=== PATIENT | female | born 1985 | race Caucasian/White ===

== ENCOUNTER 2017-02-13 19:18 | Inpatient (IN) | payer MEDICAID ==
[2017-02-13 20:01] LABS: AMORPHOUS SEDIMENT,URINE TRACE /HPF; APPEARANCE,URINE CLOUDY; BILIRUBIN,URINE NEGATIVE (NEGATIVE); GLUCOSE, URINE NEGATIVE (NEGATIVE); KETONES,URINE NEGATIVE (NEGATIVE); LEUKOCYTE ESTERASE,URINE NEGATIVE (NEGATIVE); NITRITE,URINE NEGATIVE (NEGATIVE); PROTEIN,URINE 30 mg/dL (NEGATIVE); UROBILINOGEN,URINE NEGATIVE mg/dL (<2.0)
[2017-02-13] MEDS ORDERED: BETAMET ACET/BETAMET NA INJ 6 MG/1 ML ONE (20:43)
[2017-02-13] MEDS ORDERED: BETAMET ACET/BETAMET NA INJ 6 MG/1 ML IM SCH (20:45)
[2017-02-13 20:48] LABS: ABSOLUTE EOSINOPHILS # (AUTO) 0.1 10^3/uL (0.0-0.6); ABSOLUTE LYMPHOCYTES (AUTO) 1.6 10^3/uL (0.5-4.7); ABSOLUTE MONOCYTES (AUTO) 0.8 10^3/uL (0.1-1.4); ABSOLUTE NEUT (AUTO) 9.4 10^3/uL (1.7-8.2); BASOPHILS % (AUTO) 0.3 % (0-2); EOSINOPHILS % (AUTO) 0.7 % (0-6); HEMOGLOBIN 11.1 g/dL (12.0-15.5); HGB HCT DIFFERENCE 0.3; LYMPHOCYTES % (AUTO) 13.5 % (13-45); MEAN CORPUSCULAR HEMOGLOBIN 32.3 pg (27.0-33.4); MEAN CORPUSCULAR HGB CONC 33.6 g/dL (32.0-36.0); MEAN CORPUSCULAR VOLUME 96 fl (80-97); MONOCYTES % (AUTO) 6.9 % (3-13); RED BLOOD COUNT 3.43 10^6/uL (3.72-5.28); RED CELL DISTRIBUTION WIDTH 12.7 % (11.5-14.0); SEGMENTED NEUTROPHILS % (AUTO) 78.6 % (42-78); WHITE BLOOD COUNT 11.9 10^3/uL (4.0-10.5)
[2017-02-13 20:51] LABS: APPEARANCE,URINE CLEAR; BILIRUBIN,URINE NEGATIVE (NEGATIVE); GLUCOSE, URINE NEGATIVE (NEGATIVE); KETONES,URINE NEGATIVE (NEGATIVE); LEUKOCYTE ESTERASE,URINE NEGATIVE (NEGATIVE); NITRITE,URINE NEGATIVE (NEGATIVE); PROTEIN,URINE NEGATIVE (NEGATIVE); UROBILINOGEN,URINE NEGATIVE mg/dL (<2.0)
[2017-02-13 20:55] LABS: PROTHROMBIN TIME 12.2 SEC (11.4-15.4)
[2017-02-13 20:56] LABS: FIBRINOGEN 375 mg/dL (209-497); PARTIAL THROMBOPLASTIN TIME 31.4 SEC (23.5-35.8)
[2017-02-13 21:06] LABS: URINE METHADONE SCREEN NEGATIVE; URINE PHENCYCLIDINE SCREEN NEGATIVE
[2017-02-13 21:42] LABS: ALANINE AMINOTRANSFERASE 19 U/L (9-52); ALBUMIN 3.2 g/dL (3.5-5.0); ALKALINE PHOSPHATASE 109 U/L (38-126); ANION GAP 11 (5-19); ASPARTATE AMINO TRANSFERASE 18 U/L (14-36); BILIRUBIN,DIRECT 0.2 mg/dL (0.0-0.4); BILIRUBIN,TOTAL 0.2 mg/dL (0.2-1.3); BLOOD UREA NITROGEN 9 mg/dL (7-20); CALCIUM 8.9 mg/dL (8.4-10.2); CARBON DIOXIDE 23 mmol/L (22-30); CHLORIDE 105 mmol/L (98-107); CREATININE RESULT 0.59 mg/dL (0.52-1.25); GLUCOSE 76 mg/dL (75-110); LDH 324 U/L (313-618); POTASSIUM 4.1 mmol/L (3.6-5.0); SODIUM 138.6 mmol/L (137-145); TOTAL PROTEIN 5.8 g/dL (6.3-8.2)
--- NOTE | 2017-02-13 21:51 | RADIOLOGY REPORT (SQ) ---
EXAM DESCRIPTION: U/S OB LIMITED; U/S PROFILE W/O STRESS COMPLETED DATE/TIME: 02/13/2017 9:31 pm REASON FOR STUDY: vaginal bleeding; VAGINAL BLEEDING COMPARISON: None. TECHNIQUE: Limited transabdominal grayscale ultrasound for evaluation of specific requested obstetri chau parameters. LIMITATIONS: None. FINDINGS: CERVICAL LENGTH: Not applicable. Greater than 20 weeks. Need transvaginal study if indicat ed. Closed. TATY: 14.4 cm. FHR: 137 beats per minute. PRESENTATION: Cephalic. OTHER: No other significant findings. IMPRESSION: LIMITED OBSTETRICAL ULTRASOUND WITH MEASURED PARAMETERS DELINEATED ABOVE. Trimester of : Third trimester - 28 weeks to delivery. TECHNICAL DOCUMENTATION: JOB ID: [id number] [employer]- All Rights Reserved
--- NOTE | 2017-02-13 21:51 | RADIOLOGY REPORT (SQ) ---
EXAM DESCRIPTION: U/S OB LIMITED; U/S PROFILE W/O STRESS COMPLETED DATE/TIME: 02/13/2017 9:31 pm REASON FOR STUDY: vaginal bleeding; VAGINAL BLEEDING COMPARISON: None. TECHNIQUE: Limited transabdominal grayscale ultrasound for evaluation of specific requested obstetri chau parameters. LIMITATIONS: None. FINDINGS: CERVICAL LENGTH: Not applicable. Greater than 20 weeks. Need transvaginal study if indicat ed. Closed. TATY: 14.4 cm. FHR: 137 beats per minute. PRESENTATION: Cephalic. OTHER: No other significant findings. IMPRESSION: LIMITED OBSTETRICAL ULTRASOUND WITH MEASURED PARAMETERS DELINEATED ABOVE. Trimester of : Third trimester - 28 weeks to delivery. TECHNICAL DOCUMENTATION: JOB ID: [id number] [employer]- All Rights Reserved
[2017-02-13 22:06] LABS: URINE OPIATES LOW UNCONFIRMED POSITIVE
[2017-02-13 22:07] LABS: URINE BARBITURATES SCREEN UNCONFIRMED POSITIVE
[2017-02-13 23:51] LABS: TOTAL RBC COUNT 2026; TYPE IN FILE? TYPE IN FILE; VOL OF FETOMATERNAL HEMORRHAGE 0 ML (0)
[2017-02-13] MEDS: RINGERS SOLUTION,LACTATED 1,000 ML IV PRN ×2 (23:57→23:58)
[2017-02-14 02:39] LABS: CHLAM PCR NOT DETECTED (NOT DETECT)
[2017-02-14] MEDS: RINGERS SOLUTION,LACTATED 1,000 ML IV PRN ×2 (06:38→18:57)
--- NOTE | 2017-02-14 09:16 | L&D Progress Notes ---
PROGRESS NOTES Datetime Report Generated by CPN: 02/14/2017 09:16 PROGRESS NOTE Impression Other: Stable abruption Plan: Continue Present Management Plan Other: Patient to have second dose of steriods this evening Vital Signs : Reviewed Vital Signs Comments: Scant spotting; Patient was very tearful when speaking to her about her drug use. Comment: S: Pt states pain is about 1 if any. Pt still feels contractions but feels very mild. Pt denies further bleeding, only spotting on pad. Pt denies LOF and good fm. O: VSS afebrile A: IUP @ 34+2 Stable abruption Drug abuse S/p 1 dose of BTM P: Continue continuous cardiotocometer Patient to have second dose of BTM this evening Discharge planning/social work to see patient tomorrow-Pt desires treatment for drug addiction P: Social work/discharge planning to s VAGINAL EXAM Contractions: 2-4 mins MEMBRANES Membranes: Intact FETUS A FHR - Baseline: 130s Variability: Moderate 6-25bpm Accelerations: 15X15 Decelerations: None FHR Category: Category I SIGNATURE SIGNATURE: [id number] Signature: Electronically signed by Danika Fermin MD ([facility]) on 02/14/2017 at 09:15 with User ID: [email or web address]
[2017-02-14] MEDS ORDERED: BETAMET ACET/BETAMET NA INJ 6 MG/1 ML IM ONE (21:00)
[2017-02-14] MEDS ORDERED: BETAMET ACET/BETAMET NA INJ 6 MG/1 ML ONE (21:14)
--- NOTE | 2017-02-15 09:19 | Admission Physical ---
Datetime Report Generated by CPN: 02/15/2017 09:19 CURRENT ADMISSION Chief Complaint: Vaginal Bleeding Indication for Induction: Obstetrical Complication Admit Plan: Observation/Evaluation ALLERGIES Medication Allergies: No Medication Allergies: No Known Allergies (02/13/2017) Medication Allergies: No Known Allergies (03/03/2014) Medication Allergies: No Known Allergies (03/03/2014), bee stings Latex: No Latex Allergies Food Allergies: none Environmental Allergies: bee stings OBSTETRICAL HISTORY EDC: 03/26/2017 00:00 : 2 Para: 1 Term: 1 : 0 SAB: 0 IAB: 0 Livin Gestational Diabetes: No Rh Sensitization: No Incompetent Cervix: No LYLE: No Infertility: No ART Treatment: No Uterine Anomaly: No IUGR: No Hx Previous C/S: No Macrosomia: No Hx Loss/Stillborn: No PIH: No Hx : No Placenta Previa/Abruption: No Depression/PP Depression: Yes PTL/PROM: No Post Hemorrhage: No Current Procedures: Ultrasound; NST; BPP Obstetrical History Comments: g1-2009, , female, 6lb 4oz, no complications g2-current , bleeding at 34+1 weeks, drug use positive for multiple drugs SEE RECORDS Alcohol: No Marijuana : Yes Marijuana Frequency: 3 - 5 Times Per Week Years Used: 10 Last Used: 02/12/2017 00:00 Previous Treatment: None Cocaine: Yes Cocaine Frequency: Occasional Years of Use: 10 Last Used: 02/10/17 Previous Treatment: None Other Illicit Drugs: Yes Illicit Drug Comments: Benzos- Valium took 2 pills two weeks ago as of 02/13/17 Baribituates- took fiorcet 3 pills a week ago as of 02/13/17 Percocet- daily usage at least 30mg daily Cigarettes: Current Some Day Smoker. 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 tobacco use, pneumonia that required hospitalization three times, possible congenital heart defect listed in prenatals from [facility], bacterial vaginosis INFECTIOUS HISTORY Gonorrhea: No Genital Herpes: No Chlamydia: Yes Tuberculosis: No Syphilis: No Hepatitis: No HIV/AIDS Exposure: No Rash or Viral Illness: No HPV: No Infectious History Comments: chlamydia 2015 PHYSICAL EXAM General: Normal HEENT: Normal Neurologic: Normal Thyroid: Deferred Heart: Normal Lungs: Normal Breast: Deferred Back: Deferred Abdomen: Normal Genitourinary Exam: Abnormal Extremities: Normal DTRs: Normal Pelvic Type: Adequate Physical Exam Comments: SSE: noted gush of blood upon placement of speculum, no bright red-more so maroon. No large clot noted; Cervical os appeared 1cm, no active bleeding from cervical os noted. Abdomen: soft and non-tender Bedside u/s with noted fundal and posterior placenta. No retroplacental pathology identified Vital Signs: Reviewed Details Vital Signs: Mild range HTN VAGINAL EXAM Contraction Comments: 2-4 mins MEMBRANES Membranes: Intact FETUS A EGA: 34.2 Monitoring: External US FHR- Baseline: 130s Variability: Moderate 6-25bpm Accelerations: 15X15 Decelerations: None FHR Category: Category I Admit Comment: 31yo @ 34+2 presents to L_D with complaints of vaginal bleeding. Bleeding started approximately 2 hrs after sex and pt denies any abdominal trauma. Pt denies abdominal pain. Pt notes good fm, no lof and the perception of contractions. This is complicated by opiod addiction for which pt states was triggered by "back issues'. Pt recently underwent a growth u/s at 32+6 for growth. Growth at the 12wth percentile (appears symmetric). Pt with noted elevated BPs on admission, pt states she was scared. Pt denies HAs, visual changes, epigastric and RUQ pain. Urine toxicology screen was postive for opiods, benzos, MJ, barbituates and cocaine. Suspect occult abruption. Discussed administration of steriods if pt undergoes PTD. Discussed with patient that I will not tocolize her. Pt understands that she will need to meet with social media marketer as a result of illicit drug use in . Patient desires help for her addiction. Pt admits to use of cocaine, MJ and opiods over the last 10yrs. Pt admits to no prescriptions for drugs. Will keep patient for observation on L_D second to bleeding. O Positive blood type. Abruption labs negative. PLANS FOR LABOR AND DELIVERY Labor and Delivery: None Pain Management: Epidural Feeding Preference: Both Benefit of Breast Feed Discussed: Yes Circumcision: N/A INFORMED CONSENT Signature: with User ID: [email or web address]
--- NOTE | 2017-02-15 09:36 | PDOC PROGRESS REPORT ---
Subjective Progress Note for:: 02/15/17 Subjective:: She reports only brown discharge with no active bleeding. She has a very strong history of drug use and states she will use more if sent home. She would like to go to [facility] for inpatient. Physical Exam - Physical Exam Vital Signs: Temp Pulse Resp BP Pulse Ox 98.1 F 58 L 16 112/63 98 02/15/17 08:09 02/15/17 08:09 02/15/17 08:09 02/15/17 08:09 02/15/17 08:09 Intake & Output 02/14/17 02/15/17 02/16/17 06:59 06:59 06:59 Output Total 500 Balance -500 Weight 56.95 kg General appearance: PRESENT: no acute distress Head exam: PRESENT: atraumatic - uterus is nontender Result Laboratory Results: 02/13/17 20:30 02/13/17 20:30 Impressions: Stress Test 02/13/17 00:00 IMPRESSION: LIMITED OBSTETRICAL ULTRASOUND WITH MEASURED PARAMETERS DELINEATED ABOVE. Trimester of : Third trimester - 28 weeks to delivery. Obstetrics Ultrasound 02/13/17 20:02 IMPRESSION: LIMITED OBSTETRICAL ULTRASOUND WITH MEASURED PARAMETERS DELINEATED ABOVE. Trimester of : Third trimester - 28 weeks to delivery. Assessment & Plan - Diagnosis (1) Drug use affecting in third trimester Is this a current diagnosis for this admission?: Yes Plan: Plan to have discharge planning see her. Possible transfer to [facility] for detox. Check a sono and nst. We may need to keep her inpatient until a facility spot opens up.
--- NOTE | 2017-02-15 17:42 | RADIOLOGY REPORT (SQ) ---
EXAM DESCRIPTION: U/S OB LIMITED COMPLETED DATE/TIME: 02/15/2017 5:23 pm REASON FOR STUDY: eval placenta abruption COMPARISON: 02/13/2017 TECHNIQUE: Limited transabdominal grayscale ultrasound for evaluation of specific requested obstetri chau parameters. LIMITATIONS: None. FINDINGS: CERVICAL LENGTH: Not measured. Closed. TATY: 9.9 cm. FHR: 157 beats per minute. PRESENTATION: Cephalic. OTHER: No other significant findings. IMPRESSION: LIMITED OBSTETRICAL ULTRASOUND WITH MEASURED PARAMETERS DELINEATED ABOVE. Trimester of : Third trimester - 28 weeks to delivery. TECHNICAL DOCUMENTATION: JOB ID: [id number] [employer]- All Rights Reserved
[2017-02-15] MEDS ORDERED: ACETAMINOPHEN 325 MG TABLET PO PRN (20:03)
[2017-02-16] MEDS ORDERED: PRENATAL VITAMIN W-O CA NO5/FE FUMARATE/FA CAPSULE PO ONE (16:30)
--- NOTE | 2017-02-16 19:13 | PDOC PROGRESS REPORT ---
Subjective Progress Note for:: 02/16/17 Subjective:: no further bleeding. no contractions. +FM today. Patient indicating further concerns about going home and not being able to abstain from ilicit drug use. She has talked with discharge planning and is attempting to get placement for rehab and detox at [facility]. Physical Exam - Physical Exam Vital Signs: Temp Pulse Resp BP Pulse Ox 98.1 F 68 20 116/91 H 99 02/16/17 08:23 02/16/17 08:23 02/16/17 03:21 02/16/17 08:23 02/16/17 08:23 Intake & Output 02/15/17 02/16/17 02/17/17 06:59 06:59 06:59 Intake Total 3100 500 Output Total 500 Balance -500 3100 500 General appearance: PRESENT: no acute distress, cooperative Head exam: PRESENT: atraumatic GI/Abdominal exam: PRESENT: soft - gravid Skin exam: PRESENT: abrasion, urticaria Result Laboratory Results: 02/13/17 20:30 02/13/17 20:30 02/13/17 20:27 Vaginal/Anorectal Group B Streptococcus Culture - Final NO GROUP B STREPTOCOCCUS RECOVERED Impressions: Stress Test 02/13/17 00:00 IMPRESSION: LIMITED OBSTETRICAL ULTRASOUND WITH MEASURED PARAMETERS DELINEATED ABOVE. Trimester of : Third trimester - 28 weeks to delivery. Obstetrics Ultrasound 02/15/17 00:00 IMPRESSION: LIMITED OBSTETRICAL ULTRASOUND WITH MEASURED PARAMETERS DELINEATED ABOVE. Trimester of : Third trimester - 28 weeks to delivery. Assessment & Plan - Diagnosis (1) Drug use affecting in third trimester Is this a current diagnosis for this admission?: Yes - Time Time Spent with patient: 15-24 minutes Critical Time spent with patient: Less than 15 minutes Medications reviewed and adjusted accordingly: Yes Anticipated discharge: Acute Rehab Within: within 36 hours - Plan Summary Plan Summary: will plan for discharge tomorrow hopefully to a treatment center. pt has been very honest and forthcoming that she does not believe she can abstain from drug use at home but is very worried about health of baby. Will do best to manage withdrawal symptoms and will continue to monitor for abruption.
--- NOTE | 2017-02-17 00:08 | RADIOLOGY REPORT (SQ) ---
EXAM DESCRIPTION: U/S PROFILE W/O STRESS COMPLETED DATE/TIME: 02/16/2017 11:45 pm REASON FOR STUDY: 34+2 weeks, needed for non reactive strip . The patient is 34 weeks 3 days pregna nt. COMPARISON: US OB 02/15/2017. TECHNIQUE: Limited pendleton-scale realtime and static images of the fetus to measure specified parameter s. LIMITATIONS: None. FINDINGS: HEART RATE: 137 beats per minute. TATY: 16.3 cm. POSTURE AND TONE: 2 points. MOVEMENT: 2 points. BREATHING MOVEMENT: 2 points. QUALITATIVE TATY: 2 points. PRESENTATION: Vertex. IMPRESSION: BIOPHYSICAL PROFILE: 12/08. Trimester of : Third - 28 weeks to delivery COMMENT: BREATHING MOVEMENTS: 2 POINTS: PRESENT 0 POINTS: ABSENT MOTION: 2 POINTS: PRESENT 0 POINTS: ABSENT TONE: 2 POINTS: PRESENT 0 POINTS: ABSENT AMNIOTIC FLUID VOLUME: 2 POINTS: LARGEST POCKET GREATER THAN 2 CM DEPTH. 0 POINTS: NO POCKET OF 2 CM. TECHNICAL DOCUMENTATION: JOB ID: [id number] [employer]- All Rights Reserved
[2017-02-17] MEDS ORDERED: PRENATAL VITAMIN W-O CA NO5/FE FUMARATE/FA CAPSULE PO SCH (10:00)
--- NOTE | 2017-02-17 20:56 | PDOC PROGRESS REPORT ---
Subjective Progress Note for:: 02/17/17 Subjective:: seen at 1500 today. No further bleeding. No abd pain. No ctx. + FM. pt expreses that if she is discharged from the hosptial prior to achieving rehab facility she will use drugs again. Physical Exam - Physical Exam Vital Signs: Temp Pulse Resp BP Pulse Ox 98.6 F 80 18 114/79 100 02/17/17 20:04 02/17/17 20:04 02/17/17 20:04 02/17/17 20:04 02/17/17 20:04 Intake & Output 02/16/17 02/17/17 02/18/17 06:59 06:59 06:59 Intake Total 3100 1000 600 Balance 3100 1000 600 General appearance: PRESENT: no acute distress, well-developed, well-nourished Head exam: PRESENT: atraumatic, normocephalic Respiratory exam: PRESENT: clear to auscultation mulugeta, symmetrical, unlabored. ABSENT: chest wall tenderness, tachypnea Cardiovascular exam: PRESENT: RRR. ABSENT: diastolic murmur, rubs, systolic murmur Pulses: PRESENT: normal dorsalis pedis pul, +2 pedal pulses bilateral GI/Abdominal exam: PRESENT: normal bowel sounds, soft. ABSENT: distended, guarding, mass, organolmegaly, rebound, tenderness Rectal exam: PRESENT: deferred Extremities exam: PRESENT: full ROM. ABSENT: calf tenderness, clubbing, pedal edema Neurological exam: PRESENT: alert, awake, oriented to person, oriented to place , oriented to time, oriented to situation, CN II-XII grossly intact. ABSENT: motor sensory deficit Psychiatric exam: PRESENT: appropriate affect, normal mood. ABSENT: homicidal ideation, suicidal ideation Result Laboratory Results: 02/13/17 20:30 02/13/17 20:30 Impressions: Obstetrics Ultrasound 02/15/17 00:00 IMPRESSION: LIMITED OBSTETRICAL ULTRASOUND WITH MEASURED PARAMETERS DELINEATED ABOVE. Trimester of : Third trimester - 28 weeks to delivery. Stress Test 02/16/17 00:00 IMPRESSION: BIOPHYSICAL PROFILE: 12/08. Trimester of : Third - 28 weeks to delivery Status: Imported from PACS Assessment & Plan - Diagnosis (1) Drug use affecting in third trimester Is this a current diagnosis for this admission?: Yes Plan: Pt with drug use in . Steroid complete. Pt expressing that she will use drugs if she is discharged prior to transfer to rehab facility. Rehab facility obtained and instructions given to report by 10 am tomorrow. [facility] [address] [place] [id number] Marcelo Herzog, Telephone Worker is to be here in am for her transport to rehab facility. Reviewed case with Utilization Management today. Due to risk of drug use to mother and baby would not recommend discharge until able to safely effect transfer to accepting rehab facility in am (including maternal/ /morbidity). Discharge planning notes in chart. Appreciate team effort in effecting transition for this patient. - Time Time Spent with patient: 35 or more minutes Critical Time spent with patient: 35 or more minutes Medications reviewed and adjusted accordingly: Yes Anticipated discharge: Other Within: within 24 hours - Inpatient Certification Based on my medical assessment, after consideration of the patient's comorbidities, presenting symptoms, or acuity I expect that the services needed warrant INPATIENT care.: Yes I certify that my determination is in accordance with my understanding of Medicare's requirements for reasonable and necessary INPATIENT services [42 CFR 412.3e].: Yes Medical Necessity: Need Close Monitoring Due to Risk of Patient Decompensation, Risk of Complication if Not Cared For in Hospital Post Hospital Care: D/C Heating Technician Documentation - Plan Summary Plan Summary: Discharge to Rehab facility in am.
[2017-02-18 07:17] VITALS: BP 103/68
--- NOTE | 2017-02-18 07:26 | PDOC PROGRESS REPORT ---
Subjective Progress Note for:: 02/18/17 Subjective:: No further bleeding. No abd pain. No ctx. + FM. pt expreses that if she is discharged from the hosptial prior to achieving rehab facility she will use drugs again - however family is coming this am to take her to the rehab facility. Physical Exam - Physical Exam Vital Signs: Temp Pulse Resp BP Pulse Ox 97.7 F 68 18 103/68 97 02/18/17 07:13 02/18/17 07:13 02/18/17 07:13 02/18/17 07:13 02/18/17 07:13 Intake & Output 02/17/17 02/18/17 02/19/17 06:59 06:59 06:59 Intake Total 1000 1350 Balance 1000 1350 General appearance: PRESENT: no acute distress, well-developed, well-nourished Respiratory exam: PRESENT: clear to auscultation mulugeta, symmetrical, unlabored Cardiovascular exam: PRESENT: RRR. ABSENT: diastolic murmur, rubs, systolic murmur Pulses: PRESENT: normal dorsalis pedis pul, +2 pedal pulses bilateral Vascular exam: PRESENT: normal capillary refill GI/Abdominal exam: PRESENT: normal bowel sounds, soft. ABSENT: distended, guarding, mass, organolmegaly, rebound, tenderness Rectal exam: PRESENT: deferred Extremities exam: PRESENT: full ROM. ABSENT: calf tenderness, clubbing, pedal edema Neurological exam: PRESENT: alert, awake, oriented to person, oriented to place , oriented to time, oriented to situation, CN II-XII grossly intact. ABSENT: motor sensory deficit Psychiatric exam: PRESENT: appropriate affect, normal mood. ABSENT: homicidal ideation, suicidal ideation Skin exam: PRESENT: dry, intact, warm. ABSENT: cyanosis, rash Result Laboratory Results: 02/13/17 20:30 02/13/17 20:30 Impressions: Obstetrics Ultrasound 02/15/17 00:00 IMPRESSION: LIMITED OBSTETRICAL ULTRASOUND WITH MEASURED PARAMETERS DELINEATED ABOVE. Trimester of : Third trimester - 28 weeks to delivery. Stress Test 02/16/17 00:00 IMPRESSION: BIOPHYSICAL PROFILE: 12/08. Trimester of : Third - 28 weeks to delivery Status: Imported from PACS Assessment & Plan - Diagnosis (1) Drug use affecting in third trimester Is this a current diagnosis for this admission?: Yes Plan: Pt with drug use in . Steroid complete. Pt expressing that she will use drugs if she is discharged prior to transfer to rehab facility. Rehab facility obtained and instructions given to report by 10 am today. Of note pt did leave the floor for over an hour last pm - security was called and she voluntarily returned to the hospital room. [facility] [address] [place] [address] Marcelo Herzog, Segment Producer is to be here this am for her transport to rehab facility. Reviewed case with Utilization Management today. Due to risk of drug use to mother and baby would not recommend discharge until able to safely effect transfer to accepting rehab facility with family present here to take her to facility (including maternal/ /morbidity). Discharge planning notes in chart. Appreciate team effort in effecting transition for this patient. - Time Time Spent with patient: Less than 15 minutes Medications reviewed and adjusted accordingly: Yes Anticipated discharge: Home Within: within 24 hours - Inpatient Certification Based on my medical assessment, after consideration of the patient's comorbidities, presenting symptoms, or acuity I expect that the services needed warrant INPATIENT care.: No I certify that my determination is in accordance with my understanding of Medicare's requirements for reasonable and necessary INPATIENT services [42 CFR 412.3e].: No Post Hospital Care: D/C Leasing Coordinator Documentation - Plan Summary Plan Summary: Discharge to rehab facility
--- NOTE | 2017-02-18 07:30 | PDOC DISCHARGE SUMMARY ---
General - Admit/Disc Date/PCP Admission Date/Primary Care Provider: 02/13/17 20:45 Discharge Date: 02/18/17 - Discharge Diagnosis (1) Drug use affecting in third trimester Is this a current diagnosis for this admission?: Yes Summary: Pt with drug use in and was admitted initially for bleeding in which spontaneously resolved. Steroid complete. Pt expressing that she will use drugs if she is discharged prior to transfer to rehab facility. Rehab facility obtained and instructions given to report by 10 am today. Of note pt did leave the floor for over an hour last pm - security was called and she voluntarily returned to the hospital room. [facility] [address] [place], [place] [id number] Marcelo Herzog, Senior Product Development Scientist is to be here this am for her transport to rehab facility. Reviewed case with Utilization Management today. Due to risk of drug use to mother and baby would not recommend discharge until able to safely effect transfer to accepting rehab facility with family present here to take her to facility (including maternal/ /morbidity). Discharge planning notes in chart. Appreciate team effort in effecting transition for this patient. - Additional Information Discharge Diet: As Tolerated, Regular Discharge Activity: Activity As Tolerated, Balance Activity w/Rest Home Medications: Multivitamin [Multi Vitamin Daily] 1 each PO DAILY 03/02/13 History of Present Illness Patient complains of: no c/o currently. Vaginal bleeding resolved. History of Present Illness: SEDRICK GRAY is a 31 year old female Hospital Course Hospital Course: Pt with drug use in and was admitted initially for bleeding in which spontaneously resolved. Steroid complete. Pt expressing that she will use drugs if she is discharged prior to transfer to rehab facility. Rehab facility obtained and instructions given to report by 10 am today. Of note pt did leave the floor for over an hour last pm - security was called and she voluntarily returned to the hospital room. Pt of note still not in withdrawal and has had no withdrawal symptoms - concern that she has been obtaining outside drugs. [facility] [address] [place] [id number] Marcelo Herzog, Senior Product Development Scientist is to be here this am for her transport to rehab facility. Reviewed case with Utilization Management today. Due to risk of drug use to mother and baby would not recommend discharge until able to safely effect transfer to accepting rehab facility with family present here to take her to facility (including maternal/ /morbidity). Discharge planning notes in chart. Appreciate team effort in effecting transition for this patient. Physical Exam - Physical Exam Vital Signs: Temp Pulse Resp BP Pulse Ox 97.7 F 68 18 103/68 97 02/18/17 07:13 02/18/17 07:13 02/18/17 07:13 02/18/17 07:13 02/18/17 07:13 Intake & Output 02/17/17 02/18/17 02/19/17 06:59 06:59 06:59 Intake Total 1000 1350 Balance 1000 1350 General appearance: PRESENT: no acute distress, well-developed, well-nourished Respiratory exam: PRESENT: clear to auscultation mulugeta, symmetrical, unlabored Cardiovascular exam: PRESENT: RRR. ABSENT: diastolic murmur, rubs, systolic murmur Pulses: PRESENT: normal dorsalis pedis pul, +2 pedal pulses bilateral GI/Abdominal exam: PRESENT: normal bowel sounds, soft. ABSENT: distended, guarding, mass, organolmegaly, rebound, tenderness Rectal exam: PRESENT: deferred Extremities exam: PRESENT: full ROM. ABSENT: calf tenderness, clubbing, pedal edema Neurological exam: PRESENT: alert, awake, oriented to person, oriented to place , oriented to time, oriented to situation, CN II-XII grossly intact. ABSENT: motor sensory deficit Psychiatric exam: PRESENT: appropriate affect, normal mood. ABSENT: homicidal ideation, suicidal ideation Result Laboratory Results: 02/13/17 20:30 02/13/17 20:30 Impressions: Obstetrics Ultrasound 02/15/17 00:00 IMPRESSION: LIMITED OBSTETRICAL ULTRASOUND WITH MEASURED PARAMETERS DELINEATED ABOVE. Trimester of : Third trimester - 28 weeks to delivery. Stress Test 02/16/17 00:00 IMPRESSION: BIOPHYSICAL PROFILE: 12/08. Trimester of : Third - 28 weeks to delivery Status: Imported from PACS Plan Discharge Plan: Discharge to home. Time Spent: Less than 30 Minutes
[2017-02-18 08:50] LABS: URINE BARBITURATES SCREEN NEGATIVE; URINE METHADONE SCREEN NEGATIVE; URINE OPIATES LOW NEGATIVE; URINE PHENCYCLIDINE SCREEN NEGATIVE
[2017-02-21 17:36] LABS: BENZODIAZEPINE CONFIRMATION UR Negative (Cutoff=300)
[2017-02-22 11:50] LABS: OPIATE CONFIRMATION Negative (Cutoff=200)
== END 2017-02-18 08:10 | DRG 781 ==
LOC: LC 19:18 → OBSVTOIN 20:45 → LR 20:45 → 2S 02-14 22:10
PROVIDERS: ADMIT Obstetrics & Gynecology; ATTEND Obstetrics & Gynecology
PROC: 4A1HXCZ Monitoring of Products of Conception, Cardiac Rate, External Approach (ICD-10-PCS; principal; 2017-02-13)
DX: O46.93 Antepartum hemorrhage, unspecified, third trimester (principal); O99.323 Drug use complicating pregnancy, third trimester; F14.20 Cocaine dependence, uncomplicated; F13.20 Sedative, hypnotic or anxiolytic dependence, uncomplicated; O99.333 Smoking (tobacco) complicating pregnancy, third trimester; F17.210 Nicotine dependence, cigarettes, uncomplicated; F12.20 Cannabis dependence, uncomplicated; Z3A.34 34 weeks gestation of pregnancy
CPT/HCPCS: 36415; 59025; 76815; 76819; 80053; 80307; 80345; 80353; 80361; 81001; 83615; 84550; 85025; 85362; 85384; 85460; 85610; 85730; 86850; 86900; 86901; 87081; 87491; 87591; G0480; G6056; J0702; J3490

== ENCOUNTER 2017-03-19 15:32 | Inpatient (IN) | payer MEDICAID ==
[2017-03-19] MEDS ORDERED: RINGERS SOLUTION,LACTATED 300 ML IV ONE (15:48)
[2017-03-19] MEDS ORDERED: RINGERS SOLUTION,LACTATED 1,000 ML IV PRN (15:48)
[2017-03-19] MEDS ORDERED: LIDOCAINE 1% INJ-PF (10 MG/ML) 30 ML SDV ONE (16:24)
[2017-03-19] MEDS ORDERED: OXYTOCIN/NORMAL SALINE 20 UNIT/1,000 ML RTUINJ ONE ×2 (16:24→19:20)
[2017-03-19] MEDS ORDERED: MISOPROSTOL 0.2 MG TABLET ONE (16:24)
[2017-03-19 16:42] LABS: ABSOLUTE BASOPHILS # (AUTO) 0.1 10^3/uL (0.0-0.2); ABSOLUTE EOSINOPHILS # (AUTO) 0.1 10^3/uL (0.0-0.6); ABSOLUTE LYMPHOCYTES (AUTO) 1.5 10^3/uL (0.5-4.7); ABSOLUTE MONOCYTES (AUTO) 0.9 10^3/uL (0.1-1.4); ABSOLUTE NEUT (AUTO) 8.2 10^3/uL (1.7-8.2); BASOPHILS % (AUTO) 0.8 % (0-2); EOSINOPHILS % (AUTO) 0.5 % (0-6); LYMPHOCYTES % (AUTO) 13.6 % (13-45); MEAN CORPUSCULAR HEMOGLOBIN 32.1 pg (27.0-33.4); MEAN CORPUSCULAR HGB CONC 34.3 g/dL (32.0-36.0); MEAN CORPUSCULAR VOLUME 94 fl (80-97); MONOCYTES % (AUTO) 8.8 % (3-13); RED BLOOD COUNT 3.74 10^6/uL (3.72-5.28); RED CELL DISTRIBUTION WIDTH 12.2 % (11.5-14.0); SEGMENTED NEUTROPHILS % (AUTO) 76.3 % (42-78); WHITE BLOOD COUNT 10.7 10^3/uL (4.0-10.5)
[2017-03-19 16:49] LABS: APPEARANCE,URINE SLIGHTLY-CLOUDY; BILIRUBIN,URINE NEGATIVE (NEGATIVE); GLUCOSE, URINE 50 mg/dL (NEGATIVE); KETONES,URINE TRACE mg/dL (NEGATIVE); LEUKOCYTE ESTERASE,URINE TRACE (NEGATIVE); NITRITE,URINE NEGATIVE (NEGATIVE); PROTEIN,URINE 30 mg/dL (NEGATIVE); UROBILINOGEN,URINE NEGATIVE mg/dL (<2.0)
[2017-03-19 17:26] LABS: URINE METHADONE SCREEN NEGATIVE; URINE OPIATES LOW NEGATIVE; URINE PHENCYCLIDINE SCREEN NEGATIVE
[2017-03-19 17:32] LABS: URINE BARBITURATES SCREEN UNCONFIRMED POSITIVE
[2017-03-19] MEDS ORDERED: TERBUTALINE SULFATE INJ/PF 1 MG/1 ML SDV ONE (18:40)
--- NOTE | 2017-03-19 18:52 | L&D Progress Notes ---
PROGRESS NOTES Datetime Report Generated by CPN: 03/19/2017 18:52 PROGRESS NOTE Vital Signs : Reviewed; Within Normal Limits Comment: CNM called to room to assess patient, sve, fundus firm, tetanic cx deep variables noted Pit off terb given fhts resolved with knee chest. VAGINAL EXAM Dilatation: 2 Dilatation: 2 Effacement: 80 Effacement: 80 Station: -1 Station: -1 Contractions: 2 Contractions: 3-4 MEMBRANES Membranes: Intact FETUS A FHR - Baseline: 125 Monitoring: External US Variability: Moderate 6-25bpm Accelerations: 15X15 Decelerations: Variable FHR Category: Category II Estimated Weight (gm): 3000 Presentation: Vertex SIGNATURE SIGNATURE: [id number];[id number];[id number] SIGNATURE: [id number];[id number];13,[id number] SIGNATURE: 13,[id number];10,[id number] Assignment: Bryant Retana MD Signature: with User ID: [email or web address] : with User ID: Gil
[2017-03-19] MEDS ORDERED: CEFAZOLIN 2 GM/D5W RTU 2 GM/50 ML RTUPB IV ONE (19:01)
[2017-03-19] MEDS ORDERED: CITRIC ACID/SODIUM CITRATE ORAL SOLN 15 ML UDCUP ONE (19:01)
[2017-03-19] MEDS ORDERED: CITRIC ACID/SODIUM CITRATE ORAL SOLN 15 ML UDCUP PO ONE (19:11)
[2017-03-19] MEDS ORDERED: OXYTOCIN 10 UNIT/ML VIAL ONE (19:19)
[2017-03-19] MEDS ORDERED: EPHEDRINE SULFATE INJ 50 MG/1 ML AMPULE ONE (19:20)
[2017-03-19] MEDS ORDERED: ONDANSETRON HCL INJ/PF 4 MG/2 ML SDV ONE (19:20)
[2017-03-19] MEDS ORDERED: FENTANYL CITRATE INJ/PF 100 MCG/2 ML AMPUL ONE ×2 (19:20→21:32)
[2017-03-19] MEDS ORDERED: MIDAZOLAM 2 MG/2 ML INJ ONE (19:20)
[2017-03-19] MEDS ORDERED: MEPERIDINE HCL/PF INJ 25 MG/1 ML DISP.SYRIN IV PRN (20:08)
[2017-03-19] MEDS ORDERED: NALBUPHINE HCL INJ 10 MG/1 ML AMPULE IM ONE (20:08)
[2017-03-19] MEDS ORDERED: OXYCODONE-ACETAMINOPHEN 5-325 MG TABLET PO PRN ×3 (20:08→23:56)
[2017-03-19] MEDS ORDERED: FENTANYL CITRATE INJ/PF 100 MCG/2 ML AMPUL IV PRN ×3 (20:08)
[2017-03-19] MEDS ORDERED: DIPHENHYDRAMINE HCL 50 MG/ML VIAL IV PRN (20:08)
[2017-03-19] MEDS ORDERED: PROMETHAZINE HCL INJ 25 MG/1 ML VIAL IV PRN (20:08)
[2017-03-19] MEDS ORDERED: MEASLES,MUMPS&RUBELLA VACC/PF 0.5 ML VIAL SUBCUT PRN (20:20)
[2017-03-19] MEDS ORDERED: DEXTROSE 40% GEL 15 GM TUBE PO PRN ×2 (20:20)
[2017-03-19] MEDS ORDERED: ACETAMINOPHEN 325 MG TABLET PO PRN (20:20)
[2017-03-19] MEDS ORDERED: DEXTROSE 50%-WATER 25 GM/50 ML DISP.SYRIN IV PRN ×2 (20:20)
[2017-03-19] MEDS ORDERED: GLUCAGON,HUMAN RECOMB 1 MG INJ SUBCUT PRN (20:20)
[2017-03-19] MEDS ORDERED: OXYTOCIN/NORMAL SALINE 20 UNIT/1,000 ML RTUINJ IV PRN (20:20)
[2017-03-19] MEDS ORDERED: SIMETHICONE 80 MG TAB.CHEW PO PRN (20:20)
[2017-03-19] MEDS ORDERED: DIPH/PERTUSS(ACELL)/TETANUS VAC/PF 0.5 ML SYR (>=10YO) IM PRN (20:20)
--- NOTE | 2017-03-19 20:26 | Operative Report ---
Operative Report DATE OF SURGERY: 03/19/17 PREOPERATIVE DIAGNOSIS: IUP term. History of opiate addiction. Nonreassuring strip. Noncompliant care. POSTOPERATIVE DIAGNOSIS: Same as above. OPERATION: Dalton low transverse section delivery of viable SURGEON: HENRY MYERS ANESTHESIA: Spinal TISSUE REMOVED OR ALTERED: Placenta COMPLICATIONS: None ESTIMATED BLOOD LOSS: 600 cc PROCEDURE: Patient placed in supine position with a roll on the right side prepped draped sterile fashion. After adequate level of spinal anesthesia was obtained a Pfannenstiel incision was made and extended through the subcutaneous tissue and fascia with sharp dissection. Rectus muscles were bluntly divided parietoperitoneum was entered with blunt dissection. Uterus nicked in the midline extended bilaterally was then delivered the uterine abdominal incision nose and mouth were suctioned with bulb syringe cord was clamped it was passed from the table. Placenta was manually extracted and the uterus closed in 2 layers of breast running stitch using 0 Vicryl second a Lembert stitch imbricating the first layer. Hemostasis was noted. Fascia was closed with 0 Vicryl and the skin was closed with subcuticular absorbable ariana. Infant was taken to nursery in good condition and the mother to recovery room in good condition urine remained clear throughout the procedure.
[2017-03-19] MEDS ORDERED: PROMETHAZINE HCL INJ 25 MG/1 ML VIAL ONE ×2 (20:39→21:01)
[2017-03-19] MEDS ORDERED: NALBUPHINE HCL INJ 10 MG/1 ML AMPULE ONE (20:39)
[2017-03-19] MEDS: PROMETHAZINE HCL INJ 25 MG/1 ML VIAL IV PRN ×2 (20:42→21:05)
[2017-03-19] MEDS ORDERED: IBUPROFEN 800 MG TABLET PO SCH (21:00)
[2017-03-19] MEDS ORDERED: CEFAZOLIN 2 GM/D5W RTU 2 GM/50 ML RTUPB IV SCH (21:00)
[2017-03-19] MEDS ORDERED: MEPERIDINE HCL/PF INJ 25 MG/1 ML DISP.SYRIN ONE (21:01)
[2017-03-19] MEDS ORDERED: MORPHINE SULFATE 10 MG/ML INJ ONE (22:14)
[2017-03-19] MEDS: MORPHINE SULFATE 10 MG/ML INJ IV PRN ×2 (22:16→22:30)
--- NOTE | 2017-03-19 22:54 | Admission Physical ---
Datetime Report Generated by CPN: 03/19/2017 22:53 CURRENT ADMISSION Hx Assessment: The History has been Reviewed and is Current Chief Complaint: Sent from OB Office for Evaluation and Treatment - Please Specify Chief Complaint: Vaginal Bleeding Chief Complaint Other: sent in from office elevated cord dopplers and iugr, iol Indication for Induction: IUGR; Indicated by Testing Indication for Induction: Term, Intrauterine ; No Active Labor; Intact Membranes; Induction of Labor Indication for Induction: Obstetrical Complication Admit Plan: Admit to Unit; Initiate Labor Induction Protocol Admit Plan: Observation/Evaluation ALLERGIES Medication Allergies: No Medication Allergies: No Known Allergies (03/19/2017) Medication Allergies: No Known Allergies (02/13/2017) Medication Allergies: No Known Allergies (03/03/2014) Medication Allergies: No Known Allergies (03/03/2014), bee stings Latex: No Latex Allergies Food Allergies: none Environmental Allergies: bee stings OBSTETRICAL HISTORY EDC: 03/26/2017 00:00 : 2 Para: 1 Term: 1 : 0 SAB: 0 IAB: 0 [place] Gestational Diabetes: No Rh Sensitization: No Incompetent Cervix: No LYLE: No Infertility: No ART Treatment: No Uterine Anomaly: No IUGR: No Hx Previous C/S: No Macrosomia: No Hx Loss/Stillborn: No PIH: No Hx : No Placenta Previa/Abruption: No Depression/PP Depression: Yes PTL/PROM: No Post Hemorrhage: No Current Procedures: Ultrasound; NST; BPP Obstetrical History Comments: g1-2009, , female, 6lb 4oz, no complications g2-current , bleeding at 34+1 weeks, drug use positive for multiple drugs SEE RECORDS Alcohol: No Marijuana : Yes Marijuana Frequency: 3 - 5 Times Per Week Years Used: 10 Last Used: 02/12/2017 00:00 Previous Treatment: None Cocaine: Yes Cocaine Frequency: Occasional Years of Use: 10 Last Used: 02/10/17 Previous Treatment: None Other Illicit Drugs: Yes Illicit Drug Comments: Benzos- Valium took 2 pills two weeks ago as of 02/13/17 Baribituates- took fiorcet 3 pills a week ago as of 02/13/17 Percocet- daily usage at least 30mg daily Cigarettes: Current Some Day Smoker. 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 tobacco use, pneumonia that required hospitalization three times, possible congenital heart defect listed in prenatals from [facility], bacterial vaginosis INFECTIOUS HISTORY Gonorrhea: No Genital Herpes: No Chlamydia: Yes Tuberculosis: No Syphilis: No Hepatitis: No HIV/AIDS Exposure: No Rash or Viral Illness: No HPV: No Infectious History Comments: chlamydia 2015 PHYSICAL EXAM General: Normal General: Normal HEENT: Normal HEENT: Normal Neurologic: Normal Neurologic: Normal Thyroid: Deferred Thyroid: Deferred Heart: Normal Heart: Normal Lungs: Normal Lungs: Normal Breast: Normal Breast: Deferred Back: Normal Back: Deferred Abdomen: Normal Abdomen: Normal Genitourinary Exam: Normal Genitourinary Exam: Abnormal Extremities: Normal Extremities: Normal DTRs: Normal DTRs: Normal Pelvic Type: Adequate Pelvic Type: Adequate Physical Exam Comments: pelvis proven 6lbs 4oz Physical Exam Comments: SSE: noted gush of blood upon placement of speculum, no bright red-more so maroon. No large clot noted; Cervical os appeared 1cm, no active bleeding from cervical os noted. Abdomen: soft and non-tender Bedside u/s with noted fundal and posterior placenta. No retroplacental pathology identified Vital Signs: Reviewed Vital Signs: Reviewed Details Vital Signs: Mild range HTN VAGINAL EXAM Dilatation: 2 Dilatation: 2 Effacement: 80 Effacement: 80 Station: -1 Station: -1 Contraction Comments: 2 Contraction Comments: 3-4 Contraction Comments: 2-4 mins MEMBRANES Membranes: Intact Membranes: Intact FETUS A EGA: 39.0 EGA: 34.2 Monitoring: External US Monitoring: External US FHR- Baseline: 135 FHR- Baseline: 130s Variability: Moderate 6-25bpm Variability: Moderate 6-25bpm Accelerations: Absent Accelerations: 15X15 Decelerations: None Decelerations: None FHR Category: Category I Estimated Weight (gm): 3000 Presentation: Vertex Admit Comment: Pt sent from office for iugr and elevated cord dopplers. Admit Pitocin for induction GBS negative Discharge planning extensive hx of substance abuse, did not finish rehab, takes percocet and subutex, plan to keep pt in hospital until wednesday per discharge planning hx: anxiety and depression see record for complete hx. Admit Comment: 31yo @ 34+2 presents to L_D with complaints of vaginal bleeding. Bleeding started approximately 2 hrs after sex and pt denies any abdominal trauma. Pt denies abdominal pain. Pt notes good fm, no lof and the perception of contractions. This is complicated by opiod addiction for which pt states was triggered by "back issues'. Pt recently underwent a growth u/s at 32+6 for growth. Growth at the 12wth percentile (appears symmetric). Pt with noted elevated BPs on admission, pt states she was scared. Pt denies HAs, visual changes, epigastric and RUQ pain. Urine toxicology screen was postive for opiods, benzos, MJ, barbituates and cocaine. Suspect occult abruption. Discussed administration of steriods if pt undergoes PTD. Discussed with patient that I will not tocolize her. Pt understands that she will need to meet with social insurance adviser as a result of illicit drug use in . Patient desires help for her addiction. Pt admits to use of cocaine, MJ and opiods over the last 10yrs. Pt admits to no prescriptions for drugs. Will keep patient for observation on L_D second to bleeding. O Positive blood type. Abruption labs negative. PLANS FOR LABOR AND DELIVERY Labor and Delivery: None Pain Management: Epidural Feeding Preference: Both Benefit of Breast Feed Discussed: Yes Circumcision: N/A INFORMED CONSENT Assignment: Bryant Retana MD Signature: with User ID: Gil Signature: with User ID: [email or web address] : with User ID: [email or web address] : with User ID: [email or web address]
[2017-03-19] MEDS ORDERED: HYDROMORPHONE HCL INJ/PF 2 MG/ML AMPULE ONE (23:15)
[2017-03-20] MEDS: KETOROLAC TROMETHAMINE INJ/PF 30 MG/1 ML SDV IV SCH ×3 (00:19→16:29)
[2017-03-20] MEDS: HYDROMORPHONE HCL INJ/PF 2 MG/ML AMPULE IV PRN ×2 (03:09→08:26)
[2017-03-20 06:03] LABS: HEMOGLOBIN 10.1 g/dL (12.0-15.5); HGB HCT DIFFERENCE 1.3; MEAN CORPUSCULAR HEMOGLOBIN 32.7 pg (27.0-33.4); MEAN CORPUSCULAR HGB CONC 34.7 g/dL (32.0-36.0); MEAN CORPUSCULAR VOLUME 94 fl (80-97); RED BLOOD COUNT 3.08 10^6/uL (3.72-5.28); RED CELL DISTRIBUTION WIDTH 12.2 % (11.5-14.0); WHITE BLOOD COUNT 17.1 10^3/uL (4.0-10.5)
[2017-03-20] MEDS: PRENATAL VITAMIN W DHA CAPSULE PO SCH (09:53)
[2017-03-20] MEDS: DOCUSATE SODIUM 100 MG CAPSULE PO SCH ×2 (09:53→17:28)
[2017-03-20] MEDS ORDERED: MULTIVITAMIN TABLET PO SCH (10:00)
--- NOTE | 2017-03-20 11:13 | PDOC PROGRESS REPORT ---
Subjective-OB Subjective: Post Delivery Day: 1 31 year old. Denies any needs at this time, passing gas, tolerating diet, lochia is stable, voiding without difficulty, pain well controlled. Physical Exam (OB) Vital Signs: Temp Pulse Resp BP Pulse Ox 98.4 F 54 L 18 117/81 98 03/20/17 08:01 03/20/17 08:01 03/20/17 08:01 03/20/17 08:01 03/20/17 08:01 Intake & Output 03/19/17 03/20/17 03/21/17 06:59 06:59 06:59 Intake Total 1250 1837 Output Total 350 200 Balance 900 1637 Weight 58.05 kg - PIH/Pre-Eclampsia DTR's: 1 + Clonus: Negative Headache: Absent Epigastric Pain: No Visual Changes: No - Dressing Removed: Yes Incision: Dressing Closure Type: Steri-Strips Note: incision oozing, reinforced with steristrips and op site placed - Lochia Lochia Amount: Small 10-25 ml Lochia Color: Rubra/Red - Abdomen Description: Soft, Flat Hernia Present: No Fundal Description: Firm, Midline Fundal Height: u/u - u/2 Objective-Diagnostic Laboratory: 03/20/17 05:36 03/19/17 03/19/17 03/19/17 16:15 16:15 16:15 WBC 10.7 H RBC 3.74 Hgb 12.0 Hct 35.0 L MCV 94 MCH 32.1 MCHC 34.3 RDW 12.2 Plt Count 228 Seg Neutrophils % 76.3 Lymphocytes % 13.6 Monocytes % 8.8 Eosinophils % 0.5 Basophils % 0.8 Absolute Neutrophils 8.2 Absolute Lymphocytes 1.5 Absolute Monocytes 0.9 Absolute Eosinophils 0.1 Absolute Basophils 0.1 Urine Color YELLOW Urine Appearance SLIGHTLY-CLOUDY Urine pH 5.0 Ur Specific [place] 1.030 Urine Protein 30 H Urine Glucose (UA) 50 H Urine Ketones TRACE H Urine Blood NEGATIVE Urine Nitrite NEGATIVE Ur Leukocyte Esterase TRACE H Blood Type O POSITIVE Antibody Screen NEGATIVE 03/20/17 05:36 WBC 17.1 H RBC 3.08 L Hgb 10.1 L Hct 29.0 L MCV 94 MCH 32.7 MCHC 34.7 RDW 12.2 Plt Count 160 Seg Neutrophils % Lymphocytes % Monocytes % Eosinophils % Basophils % Absolute Neutrophils Absolute Lymphocytes Absolute Monocytes Absolute Eosinophils Absolute Basophils Urine Color Urine Appearance Urine pH Ur Specific [place] Urine Protein Urine Glucose (UA) Urine Ketones Urine Blood Urine Nitrite Ur Leukocyte Esterase Blood Type Antibody Screen Assessment and Plan(PN) - Assessment and Plan (1) Delivery by emergency Is this a current diagnosis for this admission?: Yes Plan: routine post op care (2) Drug use affecting in third trimester Is this a current diagnosis for this admission?: Yes Plan: d/c planning wait wednesday for d/c - Time Spent with Patient Time with patient: Less than 15 minutes Critical Time spent with patient: Less than 15 minutes Medications reviewed and adjusted accordingly: Yes - Disposition Anticipated Discharge: Home Within: within 48 hours
[2017-03-20] MEDS: OXYCODONE-ACETAMINOPHEN 5-325 MG TABLET PO PRN ×2 (13:05→19:50)
[2017-03-21] MEDS: OXYCODONE-ACETAMINOPHEN 5-325 MG TABLET PO PRN ×5 (00:27→21:01)
[2017-03-21] MEDS: IBUPROFEN 800 MG TABLET PO SCH ×4 (01:05→17:47)
--- NOTE | 2017-03-21 09:19 | PDOC PROGRESS REPORT ---
Subjective-OB Subjective: Post Delivery Day: 1 31 year old. Denies any needs at this time, states lochia is stable, pain well controlled, voiding without difficulty Physical Exam (OB) Vital Signs: Temp Pulse Resp BP Pulse Ox 97.8 F 56 L 16 126/89 H 100 03/21/17 08:06 03/21/17 08:06 03/21/17 08:06 03/21/17 08:06 03/21/17 08:06 Intake & Output 03/20/17 03/21/17 03/22/17 06:59 06:59 06:59 Intake Total 1250 2387 Output Total 350 1100 Balance 900 1287 Weight 58.05 kg - PIH/Pre-Eclampsia DTR's: 1 + Clonus: Negative Headache: Absent Epigastric Pain: No Visual Changes: No - Dressing Removed: No - Opsite Incision: Dressing Closure Type: Steri-Strips - Lochia Lochia Amount: Scant < 10 ml Lochia Color: Rubra/Red - Abdomen Description: Tender, Soft Hernia Present: No Fundal Description: Firm, Midline Fundal Height: u/u - u/2 Objective-Diagnostic Laboratory: 03/20/17 05:36 Assessment and Plan(PN) - Assessment and Plan (1) Delivery by emergency Is this a current diagnosis for this admission?: Yes Plan: routine post op care (2) Drug use affecting in third trimester Is this a current diagnosis for this admission?: Yes Plan: d/c planning to see pt tomorrow - Time Spent with Patient Time with patient: Less than 15 minutes Critical Time spent with patient: Less than 15 minutes Medications reviewed and adjusted accordingly: Yes - Disposition Anticipated Discharge: Home Within: within 24 hours
[2017-03-21] MEDS: DOCUSATE SODIUM 100 MG CAPSULE PO SCH ×2 (09:24→17:47)
[2017-03-21] MEDS: PRENATAL VITAMIN W DHA CAPSULE PO SCH (09:24)
[2017-03-22] MEDS: IBUPROFEN 800 MG TABLET PO SCH ×5 (00:24→23:58)
[2017-03-22] MEDS: OXYCODONE-ACETAMINOPHEN 5-325 MG TABLET PO PRN ×2 (03:23→08:06)
[2017-03-22] MEDS ORDERED: LABETALOL HCL 200 MG TABLET PO ONE (08:19)
[2017-03-22] MEDS ORDERED: LABETALOL HCL 200 MG TABLET ONE (08:33)
[2017-03-22] MEDS ORDERED: MEASLES,MUMPS&RUBELLA VACC/PF 0.5 ML VIAL SUBCUT PRN (09:00)
[2017-03-22] MEDS ORDERED: DIPH/PERTUSS(ACELL)/TETANUS VAC/PF 0.5 ML SYR (>=10YO) IM PRN (09:00)
[2017-03-22 09:03] LABS: HEMATOCRIT 31.4 % (36.0-47.0); HEMOGLOBIN 10.5 g/dL (12.0-15.5); HGB HCT DIFFERENCE 0.1; MEAN CORPUSCULAR HEMOGLOBIN 31.7 pg (27.0-33.4); MEAN CORPUSCULAR HGB CONC 33.5 g/dL (32.0-36.0); MEAN CORPUSCULAR VOLUME 95 fl (80-97); RED BLOOD COUNT 3.32 10^6/uL (3.72-5.28); RED CELL DISTRIBUTION WIDTH 12.4 % (11.5-14.0); WHITE BLOOD COUNT 13.1 10^3/uL (4.0-10.5)
[2017-03-22] MEDS: PRENATAL VITAMIN W DHA CAPSULE PO SCH (09:21)
[2017-03-22] MEDS: DOCUSATE SODIUM 100 MG CAPSULE PO SCH ×2 (09:21→17:29)
[2017-03-22 09:24] LABS: ALANINE AMINOTRANSFERASE 34 U/L (9-52); ALKALINE PHOSPHATASE 110 U/L (38-126); ANION GAP 9 (5-19); ASPARTATE AMINO TRANSFERASE 29 U/L (14-36); BILIRUBIN,DIRECT 0.3 mg/dL (0.0-0.4); BILIRUBIN,TOTAL 0.3 mg/dL (0.2-1.3); BLOOD UREA NITROGEN 8 mg/dL (7-20); CALCIUM 8.6 mg/dL (8.4-10.2); CARBON DIOXIDE 24 mmol/L (22-30); CHLORIDE 106 mmol/L (98-107); CREATININE RESULT 0.57 mg/dL (0.52-1.25); GLUCOSE 74 mg/dL (75-110); LDH 572 U/L (313-618); POTASSIUM 4.2 mmol/L (3.6-5.0); SODIUM 139.3 mmol/L (137-145); TOTAL PROTEIN 5.3 g/dL (6.3-8.2); URIC ACID 4.8 mg/dL (2.5-6.2)
[2017-03-22] MEDS ORDERED: NIFEDIPINE 30 MG TAB.ER.24 PO ONE (14:00)
--- NOTE | 2017-03-22 14:49 | PDOC PROGRESS REPORT ---
Subjective-OB Subjective: Post Delivery Day:3 31 year old G2 now P2. Ambulating and voiding without difficulty. Reports mild headache and some blurry vision this AM none now, improved after having pepsi, states it could've been she has having caffeine withdrawal. Denies RUQ pain or other discomforts today. Denies any needs at this time Physical Exam (OB) Vital Signs: Temp Pulse Resp BP Pulse Ox 98.3 F 50 L 16 154/93 H 98 03/22/17 11:05 03/22/17 11:05 03/22/17 11:05 03/22/17 11:05 03/22/17 11:05 Intake & Output 03/21/17 03/22/17 03/23/17 06:59 06:59 06:59 Intake Total 2387 2100 Output Total 1100 Balance 1287 2100 - General General Appearance: Appears well In distress: None - PIH/Pre-Eclampsia DTR's: 2 + Clonus: Negative Headache: Absent Epigastric Pain: No Visual Changes: No PIH/Pre-Eclampsia Note: reviewed BPs and current s/s with Dr. Madrid who agrees with continuing inpatient status and procardia as ordered. - Dressing Removed: No Incision: Dressing, Well Approximated Closure Type: Sutures - Lochia Lochia Amount: Scant < 10 ml Lochia Color: Rubra/Red - Abdomen Description: Soft, Flat Hernia Present: No Fundal Description: Firm, Midline Fundal Height: u/u - u/2 - Respiratory Respiratory Status: No respiratory distress - Extremities Upper extremity: Normal inspection Lower extremities: Normal inspection - Psychological Associated symptoms: Normal affect, Normal mood Objective-Diagnostic Laboratory: 03/22/17 08:55 03/22/17 08:55 03/22/17 03/22/17 08:55 08:55 WBC 13.1 H RBC 3.32 L Hgb 10.5 L Hct 31.4 L MCV 95 MCH 31.7 MCHC 33.5 RDW 12.4 Plt Count 181 Sodium 139.3 Potassium 4.2 Chloride 106 Carbon Dioxide 24 Anion Gap 9 BUN 8 Creatinine 0.57 Est GFR ( Amer) > 60 Est GFR (Non-Af Amer) > 60 Glucose 74 L Uric Acid 4.8 Calcium 8.6 Total Bilirubin 0.3 AST 29 ALT 34 Alkaline Phosphatase 110 Total Protein 5.3 L Albumin 3.0 L Assessment and Plan(PN) - Assessment and Plan (1) Hypertension, condition or complication Is this a current diagnosis for this admission?: Yes Plan: reviewed BPs and current s/s with Dr. Madrid who agrees with continuing inpatient status and procardia as ordered. [facility] labs also ordered this am, reviewed and stable (2) Drug use affecting in third trimester Is this a current diagnosis for this admission?: Yes Plan: currently on subotex outpatient program. Monitor for s/s of withdrawal (3) Delivery by emergency Is this a current diagnosis for this admission?: Yes Plan: routine pp care (4) Acute blood loss anemia Is this a current diagnosis for this admission?: Yes Plan: increase dietary iron and feso4 bid - Time Spent with Patient Time with patient: 15-25 minutes Medications reviewed and adjusted accordingly: Yes - Disposition Anticipated Discharge: Home Within: within 24 hours
[2017-03-22] MEDS: FERROUS SULFATE 325 MG TABLET PO SCH (17:29)
[2017-03-22] MEDS: HYDROXYZINE PAMOATE 50 MG CAPSULE PO SCH (17:40)
--- NOTE | 2017-03-22 17:51 | PDOC CONSULTATION ---
Consultation Consult Date: 03/22/17 Attending physician:: Steven Consult reason:: "Elevated blood pressure, possible opiate withdrawal" History of Present Illness Admission Date/PCP: 03/19/17 15:32 HENRY MYERS MD Patient complains of: Consulted for elevated blood pressure History of Present Illness: SEDRICK GRAY is a 31 year old female with past medical history of multiple illicit drug use, depression, tobacco abuse. The patient reports using Subutex 8 mg twice daily for about a month up to 03/14/2017 when she ran out of her pills. She admits to then using Percocet at that time for a couple of days. She also used Fioricet around that time. She was admitted on 03/19/2017 for an uneventful section. On day 3 postop, the patient's blood pressure has been persistently elevated. She was also noted to be anxious per staff. The hospitalist team was consulted for evaluation of possible withdrawal from Subutex. The patient denies any headache seizures. She denies nausea, vomiting, diarrhea. She denies chest pain, shortness of breath. She does have some mild abdominal pain around her section incision site. She has been afebrile. Her pulse has been ranging from low 50s to high 60s. Her blood pressure was normal up to 03/21/2017 that started creeping upwards and has gone as high as 174/95. The patient has received several doses of nifedipine and oral labetalol. Past Medical History Pulmonary Medical History: Reports: Pneumonia Musculoskeltal Medical History: Reports: Arthritis - back Past Surgical History Past Surgical History: Reports: Section Social History Lives with: Family Smoking Status: Current Some Day Smoker Frequency of Alcohol Use: Social Hx Recreational Drug Use: Yes Drugs: Cocaine, Other - Percocet, Subutex Hx Prescription Drug Abuse: Yes - Subutex, Percocet - Advance Directive Resuscitation Status: Full Code Family History Family History: Reviewed & Not Pertinent Parental Family History Reviewed: Yes Children Family History Reviewed: No Sibling(s) Family History Reviewed.: No Medication/Allergy Home Medications: Multivitamin [Multi Vitamin Daily] 1 each PO DAILY 03/02/13 Allergies/Adverse Reactions: No Known Allergies Allergy (Verified 03/19/17 15:47) Review of Systems All systems: reviewed and no additional remarkable complaints except as stated Physical Exam Vital Signs: Temp Pulse Resp BP Pulse Ox 98.9 F 53 L 16 164/87 H 97 03/22/17 16:11 03/22/17 16:11 03/22/17 16:11 03/22/17 16:11 03/22/17 16:11 Intake & Output 03/21/17 03/22/17 03/23/17 06:59 06:59 06:59 Intake Total 2387 2100 Output Total 1100 Balance 1287 2100 General appearance: PRESENT: no acute distress, cooperative, well-developed, well-nourished Head exam: PRESENT: atraumatic, normocephalic Eye exam: PRESENT: conjunctiva pink, EOMI, PERRLA. ABSENT: conjunctival injection, conjunctiva pale, nystagmus, periorbital swelling, scleral icterus, other Mouth exam: PRESENT: moist, neck supple, tongue midline. ABSENT: dry mucosa, laceration, other Teeth exam: PRESENT: dental caries Neck exam: PRESENT: full ROM. ABSENT: carotid bruit, JVD, lymphadenopathy, meningismus, tenderness, thyromegaly, tracheal deviation, tracheostomy, other Respiratory exam: PRESENT: clear to auscultation mulugeta, symmetrical, unlabored. ABSENT: accessory muscle use, chest wall tenderness, crackles, decreased breath sounds, prolonged expiratory phas, rales, retraction, rhonchi, stridor, tachypnea, wheezes, other Cardiovascular exam: PRESENT: bradycardia, RRR, +S1, +S2. ABSENT: clicks, diastolic murmur, gallop, irregular rhythm, rubs, systolic murmur, tachycardia, other Pulses: PRESENT: normal carotid pulses, normal dorsalis pedis pul GI/Abdominal exam: PRESENT: normal bowel sounds, soft, tenderness - Tenderness around the surgical site in the lower abdomen. ABSENT: ascites, diminished bowel sounds, distended, firm, guarding, hernia, hyperactive bowel sounds, hypoactive bowel sounds, mass, Whatley's sign, organolmegaly, rebound, rigid Rectal exam: PRESENT: deferred Extremities exam: PRESENT: full ROM. ABSENT: calf tenderness, clubbing, joint swelling, pedal edema, tenderness, +1 edema, +2 edema, other Musculoskeletal exam: PRESENT: ambulatory, full ROM Neurological exam: PRESENT: alert, awake, oriented to person, oriented to place , oriented to time, oriented to situation, CN II-XII grossly intact Psychiatric exam: PRESENT: appropriate affect, normal mood Skin exam: PRESENT: intact, normal color, warm Results Laboratory Results: 03/22/17 08:55 03/22/17 08:55 03/22/17 03/22/17 08:55 08:55 WBC 13.1 H RBC 3.32 L Hgb 10.5 L Hct 31.4 L MCV 95 MCH 31.7 MCHC 33.5 RDW 12.4 Plt Count 181 Sodium 139.3 Potassium 4.2 Chloride 106 Carbon Dioxide 24 Anion Gap 9 BUN 8 Creatinine 0.57 Est GFR ( Amer) > 60 Est GFR (Non-Af Amer) > 60 Glucose 74 L Uric Acid 4.8 Calcium 8.6 Total Bilirubin 0.3 AST 29 ALT 34 Alkaline Phosphatase 110 Total Protein 5.3 L Albumin 3.0 L Status: Image reviewed by me Assessment & Plan - Diagnosis (1) Hypertension Qualifiers: Hypertension type: unspecified Qualified Code(s): I10 - Essential (primary ) hypertension Plan: Possibly related to anxiety vs. substance withdrawal vs. eclampsia. I have ordered CBC, LFTs, PT INR, urinalysis. Recommend continuing Procardia and Vistaril as ordered. Follow lab results (2) Substance abuse Is this a current diagnosis for this admission?: Yes Plan: Patient has polysubstance abuse including cocaine, prescription medication ( Subutex, Percocet, Fioricet). Urine drug screen positive only for barbiturates. Currently, patient does not exhibit classic signs and symptoms of opiate withdrawal. Further substance abuse strongly discouraged (3) Acute blood loss anemia Is this a current diagnosis for this admission?: Yes Plan: Defer to primary team (4) Delivery by emergency Is this a current diagnosis for this admission?: Yes Plan: Defer to primary team (5) DVT prophylaxis Plan: Patient has SCDs. Deferred prophylaxis to primary team - Time Time Spent: 50 to 70 Minutes Smoking Cessation Education: 3 to 10 minutes Medications reviewed and adjusted accordingly: Yes Disposition: Disposition per primary team - Plan Summary Plan Summary: I have ordered liver function tests coagulation studies and urine analysis. Based on her clinical symptoms, I do not think this patient is going through opiate withdrawal at this time. I did discuss with the attending physician, Dr. Madrid. She believes eclampsia is very unlikely, that the patient is anxious due to all her social stressors and her hypertension might be as a result of that. She is starting the patient on Vistaril and we will monitor overnight.
[2017-03-22 18:07] LABS: PROTHROMBIN TIME 12.1 SEC (11.4-15.4)
[2017-03-22 18:25] LABS: ALANINE AMINOTRANSFERASE 33 U/L (9-52); ALBUMIN 3.2 g/dL (3.5-5.0); ALKALINE PHOSPHATASE 114 U/L (38-126); ANION GAP 11 (5-19); ASPARTATE AMINO TRANSFERASE 29 U/L (14-36); BILIRUBIN,DIRECT 0.2 mg/dL (0.0-0.4); BILIRUBIN,TOTAL 0.2 mg/dL (0.2-1.3); BLOOD UREA NITROGEN 10 mg/dL (7-20); CALCIUM 9.2 mg/dL (8.4-10.2); CARBON DIOXIDE 26 mmol/L (22-30); CHLORIDE 106 mmol/L (98-107); CREATININE RESULT 0.69 mg/dL (0.52-1.25); GLUCOSE 85 mg/dL (75-110); POTASSIUM 4.2 mmol/L (3.6-5.0); SODIUM 142.5 mmol/L (137-145); TOTAL PROTEIN 5.6 g/dL (6.3-8.2)
[2017-03-22 19:42] LABS: AMORPHOUS SEDIMENT,URINE 1+ /HPF; APPEARANCE,URINE CLOUDY; BILIRUBIN,URINE NEGATIVE (NEGATIVE); GLUCOSE, URINE NEGATIVE (NEGATIVE); KETONES,URINE NEGATIVE (NEGATIVE); LEUKOCYTE ESTERASE,URINE NEGATIVE (NEGATIVE); NITRITE,URINE NEGATIVE (NEGATIVE); PROTEIN,URINE NEGATIVE (NEGATIVE); URINE SPECIFIC GRAVITY 1.011; UROBILINOGEN,URINE NEGATIVE mg/dL (<2.0)
[2017-03-23] MEDS: IBUPROFEN 800 MG TABLET PO SCH ×2 (06:10→11:37)
[2017-03-23 06:34] LABS: ABSOLUTE EOSINOPHILS # (AUTO) 0.2 10^3/uL (0.0-0.6); ABSOLUTE LYMPHOCYTES (AUTO) 1.7 10^3/uL (0.5-4.7); ABSOLUTE MONOCYTES (AUTO) 0.7 10^3/uL (0.1-1.4); ABSOLUTE NEUT (AUTO) 8.2 10^3/uL (1.7-8.2); BASOPHILS % (AUTO) 0.5 % (0-2); EOSINOPHILS % (AUTO) 1.8 % (0-6); HEMATOCRIT 30.9 % (36.0-47.0); HEMOGLOBIN 10.7 g/dL (12.0-15.5); HGB HCT DIFFERENCE 1.2; LYMPHOCYTES % (AUTO) 15.5 % (13-45); MEAN CORPUSCULAR HEMOGLOBIN 32.6 pg (27.0-33.4); MEAN CORPUSCULAR HGB CONC 34.7 g/dL (32.0-36.0); MEAN CORPUSCULAR VOLUME 94 fl (80-97); MONOCYTES % (AUTO) 6.3 % (3-13); RED BLOOD COUNT 3.29 10^6/uL (3.72-5.28); RED CELL DISTRIBUTION WIDTH 12.6 % (11.5-14.0); SEGMENTED NEUTROPHILS % (AUTO) 75.9 % (42-78); WHITE BLOOD COUNT 10.9 10^3/uL (4.0-10.5)
[2017-03-23 07:15] LABS: ALANINE AMINOTRANSFERASE 31 U/L (9-52); ALBUMIN 3.1 g/dL (3.5-5.0); ALKALINE PHOSPHATASE 110 U/L (38-126); ANION GAP 7 (5-19); ASPARTATE AMINO TRANSFERASE 28 U/L (14-36); BILIRUBIN,DIRECT 0.2 mg/dL (0.0-0.4); BILIRUBIN,TOTAL 0.3 mg/dL (0.2-1.3); BLOOD UREA NITROGEN 9 mg/dL (7-20); CARBON DIOXIDE 26 mmol/L (22-30); CHLORIDE 108 mmol/L (98-107); CREATININE RESULT 0.61 mg/dL (0.52-1.25); GLUCOSE 74 mg/dL (75-110); POTASSIUM 4.5 mmol/L (3.6-5.0); SODIUM 141.4 mmol/L (137-145); TOTAL PROTEIN 5.7 g/dL (6.3-8.2)
--- NOTE | 2017-03-23 07:59 | Delivery Summary ---
Del Sum A-C Datetime Report Generated by CPN: 03/23/2017 07:58 DELIVERY PERSONNEL DELIVERY PERSONNEL: [id number] Delivery Doctor:: Bryant Retana MD Anesthesiologist:: Ligia Palmer MD MEMBER OF PARLIAMENT:: Jaciel Liriano MEMBER OF PARLIAMENT Labor and Delivery Nurse:: Melani Cobian RN Digital Marketing Analyst/HATCH SUPERVISOR: Jill Silver CST Digital Marketing Analyst/HATCH SUPERVISOR: Marni Cotton CST Additional Personnel: : Elias Orr HATCH SUPERVISOR MATERNAL INFORMATION Delivery Anesthesia: Spinal Medications After Delivery: Pitocin Bolus-Please Comment Maternal Complications: Other Other Maternal Complications: non reassuring strip Provider Comments: drug addiction decelerations LABOR SUMMARY EDC: 03/26/2017 00:00 No. Babies in Womb: 1 Attempted: No Labor Anesthesia: None LABOR INFORMATION Reason for Induction: Intrauterine Growth Retardation Oxytocin: Induction Group B Beta Strep: 1 NO GROUP B STREPTOCOCCUS RECOVERED Antibiotics # of Doses: 0 Antibiotics Time of Last Dose: N/A Steroids Given: None Reason Steroids Not Administered: Not Applicable MEMBRANES Membranes Rupture Method: Artificial Rupture of Membranes: 03/19/2017 20:00 Length of Rupture (hr): 0.02 Amniotic Fluid Color: Clear Amniotic Fluid Amount: Moderate Amniotic Fluid Odor: Normal STAGES OF LABOR Stage 3 hr: 0 Stage 3 min: 1 VAGINAL DELIVERY Episiotomy: None Laceration #1: None Laceration Extension #1: N/A Laceration Repair: Not Applicable Sponge Count Correct: N/A Sharps Count Correct: N/A CSECTION DELIVERY Primary Indication: Nonreassuring Status CSection Urgency: Non-Scheduled CSection Incidence: Primary Labor: Labor Elective: Nonelective CSection Incision: Lower Uterine Transverse BABY A INFORMATION Delivery Date/Time: 03/19/2017 20:01 Method of Delivery: Born in Route : No : N/A Forceps: N/A Vacuum Extraction: N/A Shoulder Dystocia : No PRESENTATION/POSITION BABY A Presentation: Cephalic Cephalic Presentation: Vertex Breech Presentation: N/A PLACENTA INFORMATION BABY A Placenta Delivery Time : 03/19/2017 20:02 Placenta Method of Delivery: Manual Removal Placenta Status: Delivered SCORES BABY A Heart Rate 1 min: >100 bpm Resp Effort 1 min: Good Cry Reflex Irritability 1 min: Cough or Sneeze or Pulls Away Muscle Tone 1 min: Active Motion Color 1 min: Body [place], Extremities Blue Resuscitation Effort 1 min: Tactile Stimulation SCORE 1 MIN: 9 Heart Rate 5 min: >100 bpm Resp Effort 5 min: Good Cry Reflex Irritability 5 min: Cough or Sneeze or Pulls Away Muscle Tone 5 min: Active Motion Color 5 min: Body [place], Extremities Blue SCORE 5 MIN: 9 INFORMATION BABY A Gestational Age at Delivery: 39.0 Gestational Status: Full Term- 39- 40.6 Weeks Outcome : Liveborn Condition : Stable Infant Sex: Female IDENTIFICATION BABY A Verification Date/Time: 03/19/2017 20:05 ID Band Number: [id number] Mother's Name Verified: Yes Infant RN Verifying Infant: Mila Cobian, RN Additional Verifying Personnel: RGee Orr, HATCH SUPERVISOR WEIGHT/LENGTH BABY A Birthweight (gm): 2755 Weight (lb): 6 Weight (oz): 1 Length (in): 18.50 Infant Length (cm): 46.99 CORD INFORMATION BABY A No. Cord Vessels: 3 Nuchal Cord : N/A Cord Blood Taken: Yes-For Eval (Mom's Blood Type - or O+) Infant Suction: Mouth; Nose ASSESSMENT BABY A Infant Complications: Other Infant Complications- Other: see nursery delivery notes Physical Findings at Delivery: Other Physical Findings- Other: see nursery delivery notes Skin to Skin: Yes Care By: L Retana, RN Transferred To: Nursery BABY B INFORMATION : N/A SIGNATURES Signature: with User ID: [email or web address]
[2017-03-23] MEDS: PRENATAL VITAMIN W DHA CAPSULE PO SCH (09:12)
[2017-03-23] MEDS: HYDROXYZINE PAMOATE 50 MG CAPSULE PO SCH (09:13)
[2017-03-23] MEDS: FERROUS SULFATE 325 MG TABLET PO SCH (09:13)
[2017-03-23] MEDS: DOCUSATE SODIUM 100 MG CAPSULE PO SCH (09:13)
[2017-03-23] MEDS ORDERED: NIFEDIPINE 30 MG TAB.ER.24 PO SCH (10:00)
--- NOTE | 2017-03-23 10:45 | PDOC PROGRESS REPORT ---
Subjective-OB Subjective: Post Delivery Day: 3 31 year old. Denies any needs at this time, desires d/c home, will go directly over to [facility] for subutex while awaiting placement in [facility] in [place] Physical Exam (OB) Vital Signs: Temp Pulse Resp BP Pulse Ox 98.2 F 49 L 16 146/86 H 99 03/23/17 08:44 03/23/17 08:44 03/23/17 08:44 03/23/17 08:44 03/23/17 08:44 Intake & Output 03/22/17 03/23/17 03/24/17 06:59 06:59 06:59 Intake Total 2100 Balance 2100 - PIH/Pre-Eclampsia DTR's: 2 + Clonus: Negative Headache: Present Epigastric Pain: No Visual Changes: No - Dressing Removed: No - opsite Incision: Dressing, Well Approximated Closure Type: Sutures - Lochia Lochia Amount: Scant < 10 ml Lochia Color: Rubra/Red - Abdomen Description: Tender, Soft Hernia Present: No Fundal Description: Firm, Midline Fundal Height: u/u - u/2 Objective-Diagnostic Laboratory: 03/23/17 06:20 03/23/17 06:20 03/22/17 03/22/17 03/23/17 17:41 18:50 06:20 WBC 10.9 H RBC 3.29 L Hgb 10.7 L Hct 30.9 L MCV 94 MCH 32.6 MCHC 34.7 RDW 12.6 Plt Count 200 Seg Neutrophils % 75.9 Lymphocytes % 15.5 Monocytes % 6.3 Eosinophils % 1.8 Basophils % 0.5 Absolute Neutrophils 8.2 Absolute Lymphocytes 1.7 Absolute Monocytes 0.7 Absolute Eosinophils 0.2 Absolute Basophils 0.0 Sodium 142.5 Potassium 4.2 Chloride 106 Carbon Dioxide 26 Anion Gap 11 BUN 10 Creatinine 0.69 Est GFR ( Amer) > 60 Est GFR (Non-Af Amer) > 60 Glucose 85 Calcium 9.2 Total Bilirubin 0.2 AST 29 ALT 33 Alkaline Phosphatase 114 Total Protein 5.6 L Albumin 3.2 L Urine Color YELLOW Urine Appearance CLOUDY Urine pH 7.0 Ur Specific [place] 1.011 Urine Protein NEGATIVE Urine Glucose (UA) NEGATIVE Urine Ketones NEGATIVE Urine Blood MODERATE H Urine Nitrite NEGATIVE Ur Leukocyte Esterase NEGATIVE Urine WBC (Auto) 3 Urine RBC (Auto) 13 03/23/17 06:20 WBC RBC Hgb Hct MCV MCH MCHC RDW Plt Count Seg Neutrophils % Lymphocytes % Monocytes % Eosinophils % Basophils % Absolute Neutrophils Absolute Lymphocytes Absolute Monocytes Absolute Eosinophils Absolute Basophils Sodium 141.4 Potassium 4.5 Chloride 108 H Carbon Dioxide 26 Anion Gap 7 BUN 9 Creatinine 0.61 Est GFR ( Amer) > 60 Est GFR (Non-Af Amer) > 60 Glucose 74 L Calcium 9.0 Total Bilirubin 0.3 AST 28 ALT 31 Alkaline Phosphatase 110 Total Protein 5.7 L Albumin 3.1 L Urine Color Urine Appearance Urine pH Ur Specific [place] Urine Protein Urine Glucose (UA) Urine Ketones Urine Blood Urine Nitrite Ur Leukocyte Esterase Urine WBC (Auto) Urine RBC (Auto) Assessment and Plan(PN) - Assessment and Plan (1) Delivery by emergency Is this a current diagnosis for this admission?: Yes Plan: d/c home today (2) Drug use affecting in third trimester Is this a current diagnosis for this admission?: Yes Plan: out patient [facility] planned f/u today with [facility] (3) Acute blood loss anemia Is this a current diagnosis for this admission?: Yes Plan: ferrous sulfate increase dietary iron (4) Hypertension, condition or complication Is this a current diagnosis for this admission?: Yes Plan: d/c home on procardia xl 90 - Time Spent with Patient Time with patient: Less than 15 minutes Critical Time spent with patient: Less than 15 minutes Medications reviewed and adjusted accordingly: Yes - Disposition Anticipated Discharge: Home Within: within 24 hours
--- NOTE | 2017-03-23 10:53 | PDOC DISCHARGE SUMMARY ---
Final Diagnosis Discharge Date: 03/23/17 - Final Diagnosis (1) Delivery by emergency Is this a current diagnosis for this admission?: Yes (2) Drug use affecting in third trimester Is this a current diagnosis for this admission?: Yes (3) Acute blood loss anemia Is this a current diagnosis for this admission?: Yes (4) Hypertension, condition or complication Is this a current diagnosis for this admission?: Yes Discharge Data - Discharge Medication Home Medications: Multivitamin [Multi-Vitamin Daily] 1 each PO DAILY 03/02/13 Docusate Sodium [Colace 100 mg Capsule] 100 mg PO BID #60 capsule 03/23/17 Ferrous Sulfate 325 mg PO BID #60 tablet 03/23/17 Ferrous Sulfate [Feosol 325 mg Tablet] 325 mg PO BID #60 tablet 03/23/17 Hydroxyzine Pamoate [Vistaril 50 mg Capsule] 50 mg PO TID #90 capsule 03/23/17 Ibuprofen [Motrin 800 mg Tablet] 800 mg PO Q6 #60 tablet 03/23/17 Nifedipine [Procardia XL 30 mg Tablet] 90 mg PO DAILY #30 tab.er.24 03/23/17 Oxycodone HCl/Acetaminophen [Percocet 5-325 mg Tablet] 2 tab PO Q4HP PRN #30 tablet 03/23/17 Gestational Age: 39 Reason(s) for Admission: Induction of Labor, Other - growth restriction Procedures: NST Intrapartum Procedure(s): : Low Cervical, Transverse - Data Baby 1 Female at 1 minute: 9 at 5 minutes: 9 Weight: 2755 kg Home with Mother: No Complications: Yes - maternal opiate addiction, ALFREDO - Diagnosis Test Laboratory: Temp Pulse Resp BP Pulse Ox 98.2 F 49 L 16 146/86 H 99 03/23/17 08:44 03/23/17 08:44 03/23/17 08:44 03/23/17 08:44 03/23/17 08:44 03/19/17 03/19/17 03/20/17 16:15 16:15 05:36 RBC 3.74 3.08 L Hgb 12.0 10.1 L Hct 35.0 L 29.0 L Urine Opiates Screen NEGATIVE 03/22/17 03/23/17 08:55 06:20 RBC 3.32 L 3.29 L Hgb 10.5 L 10.7 L Hct 31.4 L 30.9 L Urine Opiates Screen - Discharge information/Instructions Discharge Activity: Activity As Tolerated, Pelvic Rest, No tub bath Discharge Diet: Regular Disposition: HOME, SELF-CARE Follow up with: [facility] in: 1, Weeks - incision and bp check
[2017-03-23 12:03] VITALS: BP 158/92
== END 2017-03-23 12:13 | disposition home or self-care (01) | DRG 765 ==
LOC: LR 15:32 → 2S 22:45
PROVIDERS: ADMIT Obstetrics & Gynecology Gynecology; ATTEND Obstetrics & Gynecology Gynecology
PROC: 10D00Z1 Extraction of Products of Conception, Low, Open Approach (ICD-10-PCS; principal; 2017-03-19)
PROC: 4A1HXCZ Monitoring of Products of Conception, Cardiac Rate, External Approach (ICD-10-PCS; 2017-03-19)
DX: O76 Abnormality in fetal heart rate and rhythm complicating labor and delivery (principal); O99.324 Drug use complicating childbirth; D62 Acute posthemorrhagic anemia; O36.5930 Maternal care for other known or suspected poor fetal growth, third trimester, not applicable or unspecified; O99.02 Anemia complicating childbirth; O99.334 Smoking (tobacco) complicating childbirth; O16.4 Unspecified maternal hypertension, complicating childbirth; F14.90 Cocaine use, unspecified, uncomplicated; F11.90 Opioid use, unspecified, uncomplicated; F12.90 Cannabis use, unspecified, uncomplicated; F13.90 Sedative, hypnotic, or anxiolytic use, unspecified, uncomplicated; F17.210 Nicotine dependence, cigarettes, uncomplicated; Z3A.39 39 weeks gestation of pregnancy; Z37.0 Single live birth
CPT/HCPCS: 1961; 36415; 80053; 80307; 81001; 81005; 83615; 84550; 85025; 85027; 85610; 86592; 86850; 86900; 86901; 88307; 94799; J0690; J1170; J1885; J2175; J2250; J2270; J2300; J2405; J2550; J2590; J3010; J3105; J3490; J7120

== ENCOUNTER 2019-10-20 15:36 | Emergency (ER) | payer MEDICAID ==
[2019-10-20 15:46] VITALS: BP 143/92
--- NOTE | 2019-10-20 16:37 | ER Document Report ---
ED Medical Screen (RME) - General Chief Complaint: Cough Stated Complaint: COUGHING UP BLOOD Time Seen by Provider: 10/20/19 16:26 Primary Care Provider: HENRY MYERS MD [Primary Care Provider] - Follow up as needed Notes: Patient is a 34-year-old female who presents the emergency department with a chief complaint of coughing up blood. Patient states that she has coughed up blood multiple times today. Patient reports that she had some leg pain the other day and felt that leg pain travel up her body. Patient is an everyday smoker. Exam: Respirations equal and unlabored. Clear lung sounds. I have greeted and performed a rapid initial assessment of this patient. A comprehensive ED assessment and evaluation of the patient, analysis of test results and completion of medical decision making process will be conducted by an additional ED providers. TRAVEL OUTSIDE OF THE [place] IN LAST 30 DAYS: No - Related Data Allergies/Adverse Reactions: No Known Allergies Allergy (Verified 10/20/19 16:26) Past Medical History - Social History Chew tobacco use (# tins/day): No Frequency of alcohol use: None Drug Abuse: None Pulmonary Medical History: Reports: Hx Pneumonia Musculoskeltal Medical History: Reports Hx Arthritis - back Past Surgical History: Reports: Hx Section - Immunizations Hx Diphtheria, Pertussis, Tetanus Vaccination: Yes Physical Exam - Vital signs Vitals: Temp Pulse Resp BP Pulse Ox 98.6 F 83 16 143/92 H 98 10/20/19 15:45 10/20/19 15:45 10/20/19 15:45 10/20/19 15:45 10/20/19 15:45 Course - Vital Signs Vital signs: Temp Pulse Resp BP Pulse Ox 98.6 F 83 16 143/92 H 98 10/20/19 15:45 10/20/19 15:45 10/20/19 15:45 10/20/19 15:45 10/20/19 15:45 Doctor's Discharge - Discharge Referrals: HENRY MYERS MD [Primary Care Provider] - Follow up as needed
[2019-10-20 17:01] LABS: ABSOLUTE BASOPHILS # (AUTO) 0.1 10^3/uL (0.0-0.2); ABSOLUTE EOSINOPHILS # (AUTO) 0.2 10^3/uL (0.0-0.6); ABSOLUTE LYMPHOCYTES (AUTO) 2.6 10^3/uL (0.5-4.7); ABSOLUTE MONOCYTES (AUTO) 0.8 10^3/uL (0.1-1.4); ABSOLUTE NEUT (AUTO) 9.2 10^3/uL (1.7-8.2); BASOPHILS % (AUTO) 0.9 % (0-2); EOSINOPHILS % (AUTO) 1.3 % (0-6); HEMATOCRIT 34.8 % (36.0-47.0); HEMOGLOBIN 11.9 g/dL (12.0-15.5); LYMPHOCYTES % (AUTO) 20.1 % (13-45); MEAN CORPUSCULAR HEMOGLOBIN 32.6 pg (27.0-33.4); MEAN CORPUSCULAR HGB CONC 34.1 g/dL (32.0-36.0); MEAN CORPUSCULAR VOLUME 95 fl (80-97); MONOCYTES % (AUTO) 6.5 % (3-13); PLATELET COUNT 400 10^3/uL (150-450); RED BLOOD COUNT 3.64 10^6/uL (3.72-5.28); RED CELL DISTRIBUTION WIDTH 12.5 % (11.5-14.0); SEGMENTED NEUTROPHILS % (AUTO) 71.2 % (42-78); TOTAL CELLS COUNTED % (AUTO) 100 %; WHITE BLOOD COUNT 12.9 10^3/uL (4.0-10.5)
[2019-10-20 17:14] LABS: ALBUMIN 4.6 g/dL (3.5-5.0); ALKALINE PHOSPHATASE 61 U/L (38-126); ANION GAP 7 (5-19); ASPARTATE AMINO TRANSFERASE 23 U/L (14-36); BILIRUBIN,TOTAL 0.3 mg/dL (0.2-1.3); BLOOD UREA NITROGEN 10 mg/dL (7-20); CALCIUM 9.6 mg/dL (8.4-10.2); CARBON DIOXIDE 30 mmol/L (22-30); CHLORIDE 99 mmol/L (98-107); GLUCOSE 84 mg/dL (75-110); POTASSIUM 3.9 mmol/L (3.6-5.0); TOTAL PROTEIN 7.7 g/dL (6.3-8.2)
--- NOTE | 2019-10-20 17:41 | RADIOLOGY REPORT (SQ) ---
EXAM DESCRIPTION: CHEST 2 VIEWS IMAGES COMPLETED DATE/TIME: 10/20/2019 4:59 pm REASON FOR STUDY: coughing up blood COMPARISON: None. EXAM PARAMETERS: NUMBER OF VIEWS: two views TECHNIQUE: Digital Frontal and Lateral radiographic views of the chest acquired. RADIATION DOSE: NA LIMITATIONS: none FINDINGS: LUNGS AND PLEURA: Subtle, small rounded opacities are seen demonstrating and apical basila r gradient. No focal consolidation, pleural effusion, or pneumothorax. MEDIASTINUM AND HILAR STRUCTURES: No masses or contour abnormalities. HEART AND VASCULAR STRUCTURES: Heart normal size. No evidence for failure. BONES: No acute findings. HARDWARE: None in the chest. OTHER: No other significant finding. IMPRESSION: Subtle findings suggest atypical infection. Given upper lobe predominance differential considerations include atypical organisms to include mycobacterial and fungal. TECHNICAL DOCUMENTATION: JOB ID: [id number] 2010 [employer]- All Rights Reserved Reading location - IP/workstation name: [email or web address]
--- NOTE | 2019-10-20 17:44 | RADIOLOGY REPORT (SQ) ---
EXAM DESCRIPTION: CTA CHEST IMAGES COMPLETED DATE/TIME: 10/20/2019 4:58 pm REASON FOR STUDY: coughing up blood COMPARISON: None. TECHNIQUE: CT scan of the chest performed using helical scanning technique with dynamic intravenous contrast injection. Images reviewed with lung, soft tissue and bone windows. Reconstructed coronal and sagittal MPR images reviewed. Additional 3 dimensional post-processing performed to develop Maximal Intensity Projection images (WI P). All images stored on PACS. All CT scanners at this facility use dose modulation, iterative reconstruction, and/or weight based d osing when appropriate to reduce radiation dose to as low as reasonably achievable (ALARA). [facility]: Dose Right [facility]: CareDose [facility]: Dose Right [facility]: Teradose 4D [facility]: [employer] CONTRAST TYPE AND DOSE: 43 Omnipaque 350- low osmolar. Contrast bolus adequate for pulmonary arteries and aorta. RENAL FUNCTION: None required. The patient is less than 50 years old. RADIATION DOSE: CT Rad equipment meets quality standard of care and radiation dose reduction techniq ues were employed. CTDIvol: 6.6 - 14.3 mGy. DLP: 550 mGy-cm. . LIMITATIONS: None. FINDINGS: LUNGS AND PLEURA: There scattered generally peripheral ground-glass opacities in the upper lobes. In the left upper lobe are 3 thick-walled cystic structures. The largest measures about 15 mm in largest dimension. Scattered peripheral ground-glass opacities is seen in the left lower lobe anteriorly. AORTA AND GREAT VESSELS: No aneurysm. No dissection. HEART: No pericardial effusion. No significant coronary artery calcifications. PULMONARY ARTERIES: No emboli visualized in the main pulmonary arteries or the segmental branches. HILAR AND MEDIASTINAL STRUCTURES: There are several subcentimeter sized mediastinal nodes. HARDWARE: None in the chest. UPPER ABDOMEN: No significant findings. Limited exam. THYROID AND OTHER SOFT TISSUES: No masses. No adenopathy. BONES: No acute or significant finding. 3D MIPS: Confirm above findings. OTHER: No other significant finding. IMPRESSION: 1. There is no pulmonary embolus. There is no aortic aneurysm or dissection. 2. Peripheral ground-glass opacities as seen bilaterally as described. These do not particularly hmam ve an appearance suggestive of septic emboli, but that cannot be excluded. An atypical infectious/in flammatory process is suggested. 3. There are 3 cystic structures with thick randle in the left upper lobe. Concerning for an atypica l infectious/ inflammatory process. Has the patient been tested for TB? Cannot exclude fungal infec tions. COMMENT: Quality ID # [id number]: Final reports with documentation of one or more dose reduction techniques (e.g., Automated exposure control, adjustment of the mA and/or kV according to patient size, use of iterative reconstruction technique) TECHNICAL DOCUMENTATION: JOB ID: [id number] 2010 [employer]- All Rights Reserved Reading location - IP/workstation name: [email or web address]
--- NOTE | 2019-10-20 20:16 | EKG REPORT ---
SEVERITY:- NORMAL ECG - SINUS RHYTHM : Confirmed by: Guillermo Batista MD 20-Oct-2019 20:15:50
== END 2019-10-20 17:39 | disposition left against medical advice (07) ==
LOC: ER 15:36
DX: R04.2 Hemoptysis (principal); F17.210 Nicotine dependence, cigarettes, uncomplicated
CPT/HCPCS: 36415; 71046; 71275; 80053; 84703; 85025; 93005; 93010; 99284

== ENCOUNTER 2019-10-20 19:29 | Emergency (ER) | payer MEDICAID ==
--- NOTE | 2019-10-20 21:55 | ER Document Report ---
Entered by KATINA WHITTEN SCRIBE 10/20/192053 Acting as scribe for:DANISHA LOPEZ IV, MD ED General - General Stated Complaint: COUGHING UP BLOOD Time Seen by Provider: 10/20/19 20:15 Primary Care Provider: HENRY MYERS MD [Primary Care Provider] - Follow up as needed Mode of Arrival: Ambulatory Information source: Patient Notes: This 34 year old female patient with a history of pneumonia presents to the ED today with complaints of x5 episodes of hemoptysis that started this morning. Patient states that the first and second episodes contained bright red sputum. She reports that a couple days prior, she would bring up green sputum. She admits that for the past x2-3 months, she has been smoking x1 ppd. 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 She notes night sweats and weight loss, but denies any chest pain. Patient was seen here earlier today for the same thing, but left AMA. TRAVEL OUTSIDE OF THE [place] IN LAST 30 DAYS: No - Related Data Allergies/Adverse Reactions: No Known Allergies Allergy (Verified 10/20/19 16:26) Past Medical History - General Information source: Patient, H Records - Social History Smoking Status: Current Every Day Smoker Cigarette use (# per day): Yes - 1 ppd Chew tobacco use (# tins/day): No Smoking Education Provided: Yes Family History: Reviewed & Not Pertinent Patient has suicidal ideation: No Patient has homicidal ideation: No Pulmonary Medical History: Reports: Hx Pneumonia Musculoskeletal Medical History: Reports Hx Arthritis - back Past Surgical History: Reports: Hx Section - Immunizations Hx Diphtheria, Pertussis, Tetanus Vaccination: Yes Hx Pneumococcal Vaccination: 08/16/11 Review of Systems - Review of Systems Constitutional: See HPI, Diaphoresis, Weight loss EENT: No symptoms reported Cardiovascular: No symptoms reported Respiratory: See HPI, Cough, Hemoptysis, Sputum Gastrointestinal: No symptoms reported Genitourinary: No symptoms reported Female Genitourinary: No symptoms reported Musculoskeletal: No symptoms reported Skin: No symptoms reported Hematologic/Lymphatic: No symptoms reported Neurological/Psychological: No symptoms reported -: Yes All other systems reviewed and negative Physical Exam - Vital signs Vitals: Temp Pulse Resp BP Pulse Ox 99.8 F 102 H 16 150/94 H 96 10/20/19 19:34 10/20/19 19:34 10/20/19 19:34 10/20/19 19:34 10/20/19 19:34 - General General appearance: Appears well, Alert In distress: None - HEENT Head: Normocephalic, Atraumatic Eyes: Normal Pupils: PERRL - Respiratory Respiratory status: No respiratory distress Chest status: Nontender Breath sounds: Normal Chest palpation: Normal - Cardiovascular Rhythm: Regular Heart sounds: Normal auscultation Murmur: No Friction rub: No Gallop: None auscultated - Abdominal Inspection: Normal Distension: No distension Bowel sounds: Normal Tenderness: Nontender - Abdomen soft Organomegaly: No organomegaly - Back Back: Normal, Nontender - Extremities General upper extremity: Normal inspection General lower extremity: Normal inspection - Neurological Neuro grossly intact: Yes Orientation: AAOx4 - Psychological Associated symptoms: Normal affect, Normal mood - Skin Skin Temperature: Warm Skin Moisture: Dry Skin Color: Normal Course - Re-evaluation Re-evalutation: 10/20/19 21:39 Results from earlier evaluation discussed with patient. Recommendation for admission discussed with patient. Patient states she is unable to stay for admission because of issues at home. This MD informed patient that she would be leaving AGAINST MEDICAL ADVICE and that given her symptoms and findings on imaging are concerning for the possibility of TB, the health department will be notified immediately. Risks of leaving AGAINST MEDICAL ADVICE discussed with patient; patient expressed understanding risks as explained to her. Risks discussed with patient include permanent disability, loss of lung function, loss of current quality of life, exposure to other family members and people in the community, permanent disability, and/or . Patient was encouraged to return to the emergency department anytime if she decides to seek further treatment. 10/20/19 21:42 Charge nurse, Cristina ZAFAR, was notified that Della Barraza with infectious disease need to be notified about this patient so that the health department can become involved with the patient's case given the risk for possible TB. Patient was counseled about COVID testing, self quarantine, use of masks. Patient was also counseled about smoking cessation. - Vital Signs Vital signs: Temp Pulse Resp BP Pulse Ox 99.8 F 102 H 16 150/94 H 96 10/20/19 19:34 10/20/19 19:34 10/20/19 19:34 10/20/19 19:34 10/20/19 19:34 - Diagnostic Test Radiology reviewed: Reports reviewed Discharge - Discharge Clinical Impression: Hemoptysis, unspecified, Left against medical advice, Abnormal chest x-ray, Positive urine test, Abnormal chest CT Disposition: AGAINST MEDICAL ADVICE Additional Instructions: Return to the Emergency Department without delay if any worse. Based on your chief complaint and chest x-ray and CAT scan with findings, there is concern for tuberculosis. You are being provided with masks. You should always wear a mask and avoid close contact with others. You have also been tested for COVID 19. You should self quarantine until you are given the results of your COVID testing. HOME CARE INSTRUCTIONS & INFORMATION: Thank you for choosing us for your medical needs. We hope you're satisfied with the care you received. After you leave, you must properly care for your problem and, at the same time, observe its progress. Any condition can change. Some illnesses can change rapidly over hours or days. If your condition worsens, return to the Emergency Department or see your physician promptly. ABOUT YOUR X-RAYS AND EKG'S: If you had an EKG or X-rays taken, they have been read by the Emergency Physician. The X-rays and EKG's will also be read by a Radiologist or Senior Back End Java Developer within 24 hours. If discrepancies are noted, you will be notified by telephone. Please be certain the ED has a correct telephone number & address where you can be reached. Also, realize that some fractures or abnormalities do not show up on initial X-rays. If your symptoms continue, see your physician. ABOUT YOUR LABORATORY TEST: If you had laboratory tests, the results have been reviewed by the Emergency Physician. Some test results (for example cultures) may not be available for several days. You will be contacted if any test result shows you need additional treatment. Please be certain the ED has a correct telephone number and address where you can be reached. ABOUT YOUR MEDICATIONS: You will receive instructions on how to take your medicine on the prescription label you receive. Additional information may be provided by the Pharmacy. If you have questions afterwards, call the ED for clarification or further instructions. Some prescribed medications may cause drowsiness. Do not perform tasks such as driving a car or operating machinery without consulting your Pharmacist. If you feel you need a refill of pain medication, your condition will need re-evaluation. Please do not call for a refill of any medication. ABOUT YOUR SIGNATURE: Signature of this document acknowledges to followin. Understanding that you received emergency treatment and that you may be released before al medical problems are known or treated. Please be certain the ED has a correct phone number & address where you can be reached. 2. Acknowledgement that you will arrange for follow-up care as recommended. 3. Authorization for the Emergency Physician to provide information to your follow-up Physician in order to maximize your care. AT ANY TIME, IF YOUR SYMPTOMS CHANGE SIGNIFICANTLY OR WORSEN OR YOU DEVELOP NEW SYMPTOMS, RETURN TO THE EMERGENCY DEPARTMENT IMMEDIATELY FOR RE-EVALUATION. OUR GOAL IS TO PROVIDE EXCELLENT MEDICAL CARE! WE HOPE THAT WE HAVE MET YOUR EXPECTATIONS DURING YOUR EMERGENCY DEPARTMENT VISIT AND THAT YOU FEEL YOU HAVE RECEIVED EXCELLENT CARE! Referrals: HENRY MYERS MD [Primary Care Provider] - Follow up as needed BRICE ARCHER MD [ACTIVE STAFF] - 10/23/19 I personally performed the services described in the documentation, reviewed and edited the documentation which was dictated to the scribe in my presence, and it accurately records my words and actions.
[2019-10-20 22:02] VITALS: BP 167/90
== END 2019-10-20 22:05 | disposition left against medical advice (07) ==
LOC: ER 19:29
DX: R04.2 Hemoptysis (principal); R61 Generalized hyperhidrosis; R91.8 Other nonspecific abnormal finding of lung field; F17.210 Nicotine dependence, cigarettes, uncomplicated; Z20.828 Contact with and (suspected) exposure to other viral communicable diseases; Z32.01 Encounter for pregnancy test, result positive
CPT/HCPCS: 99283; 36415; 87206; 87116; 87635; 87015; C9803